=== PATIENT | male | born 1955 | race Caucasian/White ===

== ENCOUNTER 2018-09-13 11:31 | Outpatient (CLI) | payer OTHER ==
--- NOTE | 2018-09-13 12:09 | RAD ---
XR Chest Pa Lat STANDARD History: [Pneumothorax. Fever. J93.9] Comparison: None Findings: Right lung is clear. There is an air-fluid level left pneumothorax. Moderate left apical pneumothorax with the apical pleu ral line at the posterior left fourth rib.. Likely calcified granuloma left upper lobe. Impression: Left moderate hydropneumothorax. Message was sent to the referring provider using [employer].
== END 2018-09-13 11:32 | disposition home or self-care (01) ==
LOC: BICRAD 11:31
PROVIDERS: ATTEND Physician Assistant
DX: J93.9 Pneumothorax, unspecified (principal); R50.9 Fever, unspecified; J94.8 Other specified pleural conditions
CPT/HCPCS: 71046

== ENCOUNTER 2018-09-29 14:42 | Outpatient (CLI) | payer OTHER ==
--- NOTE | 2018-09-29 16:24 | MRI ---
MRI BRAIN NONCONTRAST: DATE: 09/29/2018 HISTORY: 63-year-old male with episode of dysarthria: TIA. COMPARISON: None FINDINGS: There are numerous small foci of restricted diffusion in the left cerebrum. One of them, located at t he far posterior edge of the left insula measuring approximately 1 x 0.6 cm, has a T2 hyperintense correlate. None of the other numerous lesions with restricted diffusion have any significant intra-ax ial signal abnormality visible on the FLAIR sequences yet. These other ones include several punctate lesions plus gyriform cortical lesions involving the left parietal lobe. There is a large number of tiny, small, and patchy T2-hyperintense lesions in the subcortical, deep, and periventricular white matter, consistent with chronic ischemic white matter changes due to microvascular atherosclerosis. There is no acute intra-axial hemorrhage. Ventricles are normal in size and configuration. No mass ef fect, midline shift, or extra-axial fluid collection. IMPRESSION: 1) a large number of tiny punctate focal, and thin cortical gyral acute infarctions in the left parie elaine lobe (left middle cerebral artery distribution). 2) a small 1 cm acute or subacute lacunar infarction at the posterior aspect of the left insular jorge l ex.
== END 2018-09-29 14:43 | disposition home or self-care (01) ==
LOC: BICMRI 14:42
PROVIDERS: ATTEND Physician Assistant
DX: G45.9 Transient cerebral ischemic attack, unspecified (principal); I63.81 Other cerebral infarction due to occlusion or stenosis of small artery
CPT/HCPCS: 70551

== ENCOUNTER 2019-01-16 12:24 | Outpatient (CLI) | payer OTHER ==
[2019-01-16 13:11] LABS: Estimated GFR-MDRD - POC Greater than 90
[2019-01-16] MEDS ORDERED: Iopamidol 370 76% 100 ML VIAL ONE (13:45)
--- NOTE | 2019-01-16 15:50 | CT ---
CT LUMBAR SPINE WITH IV CONTRAST: Multiple axial tomograms were obtained through the lumbar spine with IV enhancement. INDICATION: Radiculopathy. Fever. Assess for abscess. FINDINGS: There are degenerative changes of the lumbar spine. Severe degenerative disk changes are seen aL2-3, L3-4, and L4-5. Rather pronounced degenerative end plate changes at L2-3. Osteophytes of the lumba r vertebrae. At T12-L1, no significant disk bulge or protrusion. No central canal stenosis. At L1-2, broad-based disk bulge flattens the thecal sac. Facet hypertrophy. Moderate central canal stenosis. Mild bilateral foraminal stenosis more prominent on the right. At L2-3, degenerative disk changes noted above. Broad-based disk bulge. Facet hypertrophy. Moderat e central canal stenosis. Asymmetric disk bulge/protrusion to the right with hypertrophic changes re sults in right foraminal stenosis. At L3-4, broad-based disk bulge/protrusion flattens the thecal sac. Facet hypertrophy. Moderate to severe central canal stenosis. Asymmetric disk bulges to the right combined with facet hypertrophy r esults in right foraminal stenosis. At L4-5, broad-based disk protrusion. Gas density within the anterior spinal canal secondary to vacu um phenomena. Facet hypertrophy. Moderate to severe central canal stenosis. Left foraminal stenosi s due to asymmetric disk into the foramina and the combined facet hypertrophy. Tiny gas pockets are seen within the foramina as a result of anular tear and disk protrusion into the foramina. At L5-S1, mild diffuse disk bulge. Congenitally smaller thecal sac. No significant central canal st enosis. No significant foraminal stenosis. No evidence of fluid collection or abscess identified. No paravertebral abscess or inflammatory proc ess identified. IMPRESSION: Degenerative disk changes at multiple levels. Moderate to severe central canal stenosis at L2-3, L3- 4, and L4-5. Disk protrusion with foraminal stenosis at L4-5 as described. Severe right foraminal s tenosis at L3-4 and L2-3 as described. POS: GENIA
== END 2019-01-16 12:25 | disposition home or self-care (01) ==
LOC: CT 12:24
PROVIDERS: ATTEND Family Medicine
DX: M54.16 Radiculopathy, lumbar region (principal); R50.9 Fever, unspecified; M51.36 Other intervertebral disc degeneration, lumbar region; M48.061 Spinal stenosis, lumbar region without neurogenic claudication
CPT/HCPCS: 72132; Q9967

== ENCOUNTER 2019-01-19 15:03 | Inpatient (IN) | payer OTHER ==
[2019-01-19 16:13] LABS: #Basophils 0.1 thou/uL (0.0-0.2); #Lymphocytes 1.9 thou/uL (1.20-3.40); #Monocytes 1.9 thou/uL (0.11-0.59); #Neutrophils 9.7 thou/uL (1.40-6.50); %Basophils 0.5 % (0.0-1.0); %Eosinophils 0.3 % (0.0-10.0); %Lymphocytes 13.6 % (21.0-51.0); %Monocytes 14.2 % (0.0-10.0); %Neutrophils 71.4 % (42.0-75.0); Hemoglobin 12.9 g/dL (14.0-18.0); Mean Corpuscular HGB CONC 32.8 g/dL (32.0-36.0); Mean Corpuscular Hemoglobin 27.2 pg (27.0-31.0); Mean Platelet Volume 8.2 fL (7.4-10.4); Platelet Count 273 thou/uL (130-400); RBC Distribution Width 14.4 % (11.5-14.5); Red Blood Cell (RBC) Count 4.73 mill/uL (4.70-6.10); White Blood Cell (WBC) Count 13.6 thou/uL (4.8-10.8)
[2019-01-19 16:43] LABS: ALT (SGPT) 129 U/L (8-55); AST (SGOT) 54 U/L (5-34); Albumin 3.3 g/dL (3.4-4.8); Alkaline Phosphatase 286 U/L (40-110); Anion Gap 14 mmol/L (10-20); BUN (Urea Nitrogen) 11 mg/dL (8.4-25.7); Bilirubin, Total 0.5 mg/dL (0.2-1.2); Calc. Creatinine Clearance 0 mL/min (70-130); Carbon Dioxide 26 mmol/L (23-31); Chloride 97 mmol/L (98-107); Estimated GFR-MDRD Greater than 90; Globulin 3.6 g/dL (2.4-3.5); Glucose 129 mg/dL (80-115); Potassium 3.4 mmol/L (3.5-5.1); Protein, Total 6.9 g/dL (5.8-8.1); Sodium 134 mmol/L (136-145)
[2019-01-19] MEDS ORDERED: Morphine 4 MG/ML VIAL ONE ×2 (16:52→17:24)
[2019-01-19] MEDS ORDERED: Ondansetron PF 4 MG/2 ML Vial ONE (16:52)
--- NOTE | 2019-01-19 17:15 | RAD ---
PORTABLE CHEST 1 VIEW: Date: 01/19/19 Time: 1606 hours HISTORY: Fever, back pain, headaches. FINDINGS: Comparison made with exam of 09/13/18. Changes of median sternotomy again seen. The heart size is normal. The lungs are expanded without foc al areas of consolidation, pneumothoraces, or pleural effusions. An electronic device is seen in the projection of the left upper chest. IMPRESSION: No acute process. POS: OFF
[2019-01-19 19:21] VITALS: BMI 24.7
[2019-01-19] MEDS: Cyclobenzaprine 10 MG TAB PO PRN (20:56)
[2019-01-19] MEDS: traZODone HCl 50 MG TAB PO SCH (20:56)
[2019-01-19] MEDS ORDERED: Ketorolac Tromethamine 10 MG TAB PO SCH ×2 (21:00)
[2019-01-19] MEDS: Lidocaine 5% Patch TD PRN (21:32)
--- NOTE | 2019-01-20 00:30 | PDOC.EVN ---
Event Note - Event Note Event Note: [id number]
[2019-01-20] MEDS: HYDROcodone/Acetaminophen 7.5/325 mg Tablet PO PRN ×3 (00:36→15:30)
--- NOTE | 2019-01-20 02:21 | HP ---
HISTORY OF PRESENT ILLNESS: Mr. Mccartney is a 63-year-old male who presents to the emergency room with back pain, fever, weakness and headache for the last week. The family and reported that DrAngelika Marie also was concerned for symptoms of endocarditis?. Family said that his doctor was concerned for possible diskitis/osteomyelitis. The patient has had a triple bypass back in September 03. The patient reports generalized weakness and burning sensation in the left lower leg, which feels like there is a fire in it. Septic workup was done in the ED including blood cultures. The patient was given 1 dose of IV vancomycin. The patient is being admitted to the hospital for further management. PAST MEDICAL HISTORY: 1. TIA. 2. Syncopal episode. 3. Coronary artery disease. PAST SURGICAL HISTORY: Triple bypass. SOCIAL HISTORY: Denies alcohol drinking. He has former tobacco use, quit smoking in the past year. FAMILY HISTORY: Noncontributory. ALLERGIES: ALLERGIC TO FENTANYL. REVIEW OF SYSTEMS: Review of 14 systems negative except what is mentioned in the history of present illness. PHYSICAL EXAMINATION: GENERAL: Patient is awake, alert. There is moderate distress. VITAL SIGNS: Blood pressure 148/82, pulse is 74, respiratory rate 16, temperature 98.4. HEAD AND NECK: Normocephalic, atraumatic. NECK: Supple. CHEST: Fair bilateral air entry. HEART: S1, S2. Regular. ? murmur. ABDOMEN: Soft, nontender. Bowel sounds present. NEUROLOGIC: Awake, alert, oriented. PSYCHIATRIC: Unable to assess. EXTREMITIES: No clubbing or cyanosis. LABORATORY DATA: WBC count is 13.6, hemoglobin 12.9, platelets 273. Sodium 134, potassium 3.4, glucose 129, AST was 54, ALT 129. IMAGING: Chest x-ray, no acute findings. ASSESSMENT AND PLAN: 1. Fever. 2. Back pain. 3. ? endocarditis. 4. ? cardiac murmur. 5. Coronary artery disease. 6. History of transient ischemic attack. PLAN: 1. Admit. 2. Septic workup including blood cultures. 3. IV antibiotics. The patient was given IV vancomycin. 4. Neurosurgeon was consulted for evaluation and further recommendations. 5. We will get a 2D echo. 6. Pain management. 7. Reconcile home medications. 8. DVT prophylaxis. Early ambulation. 9. Expected length of stay 2 midnights or more. Job ID: [id number]
[2019-01-20] MEDS: Vancomycin HCl 1 GM in Premix Bag 1 BAG IVPB SCH ×3 (05:07→20:48)
[2019-01-20] MEDS: Ketorolac Tromethamine 10 MG TAB PO SCH ×2 (05:08→11:02)
[2019-01-20 07:06] LABS: #Eosinphils 0.1 thou/uL (0.0-0.7); #Lymphocytes 1.9 thou/uL (1.20-3.40); #Monocytes 1.4 thou/uL (0.11-0.59); #Neutrophils 11.1 thou/uL (1.40-6.50); %Basophils 0.3 % (0.0-1.0); %Eosinophils 0.4 % (0.0-10.0); %Lymphocytes 13.2 % (21.0-51.0); %Monocytes 9.8 % (0.0-10.0); %Neutrophils 76.3 % (42.0-75.0); Hemoglobin 12.2 g/dL (14.0-18.0); Mean Corpuscular HGB CONC 33.4 g/dL (32.0-36.0); Mean Corpuscular Hemoglobin 27.4 pg (27.0-31.0); Mean Corpuscular Volume 82.2 fL (78.0-98.0); Platelet Count 301 thou/uL (130-400); RBC Distribution Width 14.2 % (11.5-14.5); Red Blood Cell (RBC) Count 4.45 mill/uL (4.70-6.10); White Blood Cell (WBC) Count 14.6 thou/uL (4.8-10.8)
[2019-01-20 07:26] LABS: Anion Gap 13 mmol/L (10-20); BUN (Urea Nitrogen) 11 mg/dL (8.4-25.7); Calc. Creatinine Clearance 140 mL/min (70-130); Calcium 8.6 mg/dL (7.8-10.44); Carbon Dioxide 25 mmol/L (23-31); Chloride 94 mmol/L (98-107); Estimated GFR-MDRD Greater than 90; Glucose 143 mg/dL (80-115); Potassium 3.4 mmol/L (3.5-5.1); Sodium 129 mmol/L (136-145)
[2019-01-20] MEDS: Cyclobenzaprine 10 MG TAB PO PRN (07:48)
[2019-01-20] MEDS: Lidocaine Patch Removal 1 EACH TOP SCH ×2 (08:11→20:35)
[2019-01-20] MEDS ORDERED: Vancomycin HCl 1 GM in Premix Bag 1 BAG IVPB SCH (09:00)
[2019-01-20] MEDS ORDERED: ISOVUE-370 76%-LOCM 1 ML ONE (10:09)
[2019-01-20] MEDS ORDERED: Gadobenate Dimeglumine 529 MG/1 ML (20ML VIAL) ONE (10:14)
--- NOTE | 2019-01-20 11:27 | PRG ---
DATE OF SERVICE: 01/20/2019 I met Angel Mccartney in his hospital room this morning. I personally interviewed him, examined him, reviewed imaging, reviewed documentation and agree with the notes of Dorinda Espinosa PA-C, from earlier today. Briefly, Angel Mccartney is a 63-year-old gentleman who had a coronary artery bypass graft in June. At some point, he had a pacemaker placement. In September of this year, he suffered a stroke in the MCA distribution on the right side and this admission is for high-grade fever and severe back pain. He has a long history of degenerative disk disease in the lumbar spine with some radicular symptoms, especially on the left side, but the worsening back pain and fevers are new. T-max recorded that I see since admission is 99.6 degrees Fahrenheit. On examination, Mr. Mccartney is awake. He has had some pain medication. He is sleepy because of the medication, but he awakes and answers questions appropriately. I do not find any cranial neuropathies. There is slight left neglect. He has a very mild pronator drift. I do not find any myotomal weakness in the left or right lower extremity. There is tenderness in the midline of the back. CT imaging shows degenerative disk disease, but does not reveal the nerve roots. There is leukocytosis. Sedimentation rate is pending and CRP is pending. Blood cultures are pending. My recommendation for Mr. Mccartney is to have MRI scan with contrast of the lumbar spine. The pacemaker was placed here, then our Cardiology team ought to know whether it is MRI compatible. If this was done this year then is likely compatible with MRI scan, but we need to document it before the scan can be done. If the MRI scan cannot be done at all, then a tagged white blood cell scan is a possibility or a contrast CT scan. If there is a disk space that enhances or is a target for localization of white blood cells or if the MR images suggest this, then Radiology can do a CT-guided aspirate of the disk space if there is no source on blood cultures. Thankfully, the neurological function is relatively well preserved in the lower extremities and I recommend antibiotic therapy. Because the pacemaker is in place, there is always a question whether this device can be infected and perhaps a tagged white blood cell scan will be helpful in that regard as well. We will let defer to Cardiology, Infectious Disease and Medicine in that regard. Our Neurosurgery Team will follow up test results, but we are unlikely to recommend surgical intervention unless the imaging is extremely unusual. Job ID: [id number]
--- NOTE | 2019-01-20 11:46 | CON ---
DATE OF CONSULTATION: HISTORY OF PRESENT ILLNESS: Mr. Mccartney is a 63-year-old male who reported to the ED last night for fever and back pain. The patient's states that he has had sciatica for quite some time, but that the pain has gotten worse for about a week. Dr. Marie is concerned about past symptoms of endocarditis and is now worried that there is concern for diskitis or osteomyelitis. A CT scan was done earlier in the week. Neurosurgery has been consulted. I see Mr. Mccartney in his hospital room this morning. He is resting comfortably, lying on his back with his feet up in the bent position. He did recently have pain medications, so he is a little lethargic. The fills in some of the details. The patient had a triple bypass done with Dr. Bal in August and there was concern for endocarditis following this operation. The patient had fever that started last week along with some back pain. The worse pain was on the left, radiating along the L5 distribution. Last night when they got to the emergency department, it was bilateral. When I am seeing him this morning, he is able to move all 4 extremities without any lateralizing defects. There is good strength, good sensation. He states that his back is sore, but the legs feel pretty good right now. The medication is obviously working. While in my exam and without quick prompting, he falls back asleep, but he wakes well. He is alert and oriented to person, place, and time. REVIEW OF SYSTEMS: A 10-point review of systems has been completed and is negative other than stated in the above HPI. PAST MEDICAL HISTORY: TIA, syncopal episode, cardiac history. SURGICAL HISTORY: Triple bypass. SOCIAL HISTORY: The patient lives with his . He is a former tobacco user. Denies alcohol or drug use. ALLERGIES: FENTANYL. CURRENT MEDICATIONS: 1. Lidocaine. 2. Methocarbamol. 3. Methylprednisolone. 4. Tylenol with Codeine #4. 5. Clopidogrel. 6. Lipitor. 7. Metoprolol. 8. Hydroxyzine. 9. Sertraline. 10. Trazodone. 11. Fish oil. 12. Biotin. 13. Tylenol Arthritis. PHYSICAL EXAMINATION: VITAL SIGNS: Temperature 99.6, heart rate 80, respirations 16, O2 saturation 91% on room air, and 157/70 blood pressure. CONSTITUTIONAL: The patient is lethargic, but awakens easily. He is afebrile, slightly hypertensive, does not appear to be in any significant pain and appears nontoxic. HEENT. Head is normocephalic and atraumatic. Pupils are equal, round, and reactive to light. Extraocular movements are intact. Hearing is intact. Moist mucous membranes. RESPIRATIONS: Normal work of breathing on room air. Symmetric chest rise. EXTREMITIES: The patient is moving upper and lower extremities well. Negative single leg raise bilaterally. Hip rotation normal. 5/5 strength in deltoids, biceps, triceps, bag adjuster strength, hip flexion, hip extension, knee flexion, knee extension, dorsiflexion, plantar flexion. There is no change in sensation. NEUROLOGIC: The patient is sleepy, but awakens easily. He is oriented to person, place, and time. Speech is spontaneous and fluent. Normal fund of knowledge. Cranial nerves 2 through 12 are intact. There are no lateralizing sensory or motor deficits noted. IMAGING STUDIES: CT lumbar that was done on 01/16/2019 shows degenerative disk changes at multiple levels. Moderate to severe central canal stenosis at L2-L3, L3-L4, and L4-5. Disk protrusion with foraminal stenosis at L4-5, severe right foraminal stenosis at L3-4 and L2-3. ASSESSMENT AND PLAN: Mr. Mccartney is a 63-year-old male with history of high fevers and back pain. There is concern for an infective endocarditis and now there is concern for diskitis with osteomyelitis. He has been admitted to the hospital by the Hospitalist Department. Workup needs to be done. CBC, sedimentation rate, CRP, MRI lumbar spine with and without contrast, SURYA for vegetations, Infectious Disease consult should be done. If there is any reason that the patient cannot get MRI with and without contrast, then he needs to have CT with and without contrast. If there is any cardiac concerns, then we can look into what was placed. I believe it was done at our hospital and if it is okay for the MRI machine or not. Thank you for consulting Neurosurgery. If there are any further questions, please contact our group. Job ID: [id number]
[2019-01-20] MEDS: Ibuprofen 200 MG TAB PO PRN ×2 (12:28→21:36)
--- NOTE | 2019-01-20 12:32 | RAD ---
XR Chest 1 View History: Follow-up Comparison: Radiograph prior day Findings: The extrinsic device has been removed. Heart size mildly enlarged. No pneumothorax. Mild pu lmonary venous congestion. No acute osseous abnormality. Multiple midline sternotomy wires. Impression: Cardiomegaly and mild pulmonary venous congestion. Removal of the extrinsic device.
--- NOTE | 2019-01-20 12:36 | PDOC.HOSPP ---
- Subjective Encounter Date: 01/20/19 Encounter Time: 12:34 Subjective: Mr. Mccartney was seen today in follow-up of severe back pain and concern for spinal infection. He says the pain in his back is relatively controlled. He is a bit drowsy. - Objective Vital Signs & Weight: Vital Signs (12 hours) Temp Pulse Resp BP BP Pulse Ox 01/20/19 11:50 101.1 F H 91 16 167/84 H 91 L 01/20/19 07:49 99.6 F 80 16 157/70 H 91 L 01/20/19 04:30 98.3 F 88 18 168/79 H 93 L Weight Weight 163 lb 2.273 oz I&O: 01/19/19 01/20/19 01/21/19 06:59 06:59 06:59 Intake Total 350 Balance 350 Result Diagrams: 01/20/19 06:52 01/20/19 06:52 Hospitalist ROS - Medication Medications: Active Medications Generic Name Dose Route Start Last Admin Trade Name Freq PRN Reason Stop Dose Admin Hydrocodone Bitart/Acetaminophen 1 tab 01/20/19 00:21 01/20/19 06:18 [place] 7.5/325 PO 1 tab Q6H PRN Administration Moderate Pain (4-6) Cyclobenzaprine HCl 10 mg 01/19/19 20:15 01/20/19 07:48 Flexeril PO 10 mg TID PRN Administration Muscle Spasm Vancomycin HCl 1 gm/ Device 200 mls @ 200 mls/hr 01/20/19 06:00 01/20/19 12: 29 IVPB 200 mls Q8HR ALBIN Administration Ibuprofen 600 mg 01/20/19 12:21 01/20/19 12:28 Motrin PO 600 mg Q6H PRN Administration FEVER, PAIN Lidocaine 2 patch 01/19/19 20:16 01/19/19 21:32 Lidoderm 5% Patch TD 2 patch Q24H PRN Administration Pain Miscellaneous Medication 1 each 01/20/19 09:00 01/20/19 08:11 Lidocaine Patch Removal TOP Not Given Q12HR LABIN Trazodone HCl 50 mg 01/19/19 21:00 01/19/19 20:56 Desyrel PO 50 mg HS ALBIN Administration - Exam Eye: PERRL Heart: RRR, no murmur, no gallops, no rubs, normal peripheral pulses Respiratory: CTAB, no wheezes, no rales, no ronchi, normal chest expansion Gastrointestinal: soft, non-tender, non-distended, normal bowel sounds, no palpable masses, no hepatomegaly, no splenomegaly Extremities: no cyanosis, no clubbing, no edema Musculoskeletal: normal tone, normal strength, no muscle wasting Psychiatric: normal affect, normal behavior, A&O x 3 Hosp A/P (1) Fever Code(s): R50.9 - FEVER, UNSPECIFIED Status: Acute (2) Severe back pain Code(s): M54.9 - DORSALGIA, UNSPECIFIED Status: Acute (3) CAD (coronary artery disease) Code(s): I25.10 - ATHSCL HEART DISEASE OF [place] CORONARY ARTERY W/O ANG PCTRS Status: Acute (4) S/P CABG x 3 Code(s): Z95.1 - PRESENCE OF AORTOCORONARY BYPASS GRAFT Status: Acute (5) Abnormal liver function test Code(s): R94.5 - ABNORMAL RESULTS OF LIVER FUNCTION STUDIES Status: Acute - Plan * Fever and back pain- the concern is for Lumbar spine disciits- plan is fro MRI of the Lumbar spine * Continue Vancomycin empirically * CAD- continue Plavix, lipitor, and metoprolol * Elevated LFT's- will check a hepatitis panel, and repeat in am to assess the trend * Continue medications for symptom management * DVT prophylaxis
[2019-01-20 12:43] LABS: HBSAg Index 0.15 S/CO (0-0.99); Hep A IgM AB Non-Reactive (NonReactive); Hep A IgM S/CO 0.08 S/CO (0-0.79); Hep B Surf Ag Non-Reactive S/CO (NonReactive); Hep C IgG Ab Non-Reactive (NonReactive); Hep C Index 0.04 S/CO (0-0.79); Hepatitis B Core IgM Abs Non-Reactive (NonReactive)
--- NOTE | 2019-01-20 14:28 | CT ---
CT abdomen and pelvis with IV contrast HISTORY: Fever. Abdominal pain. FINDINGS: Subsegmental atelectasis at each posterior lung base. Small cysts within the liver and righ t kidney. No hydronephrosis. Prominent calcification throughout the arterial structures. No evidence of bowel obstruction or inflammation. Urinary bladder is unremarkable. Prominent degenerativ e changes lumbar spine. Old ununited fracture of the left L5 inferior facet. L4 Fluid distends the left side of the scrotum. Linear hyperdensity along the anterior margin of the lef t side of the scrotum has the apparent calcification. No internal gas. IMPRESSION: Cause of abdominal pain and fever is not reliably demonstrated. Perhaps the right basilar lung atelectasis could be related to the fever. Large left hydrocele. Calcification along the tunica on the left side of the scrotum suggests possibi lity of an old infection or hematoma.
--- NOTE | 2019-01-20 15:59 | MRI ---
MRI LUMBAR SPINE WITH AND WITHOUT CONTRAST: DATE: 01/20/2019 HISTORY: 63-year-old male with low back pain and fever of unknown origin. COMPARISON: No prior MRIs of lumbar spine. TECHNIQUE: Multiple sequences obtained in axial and sagittal planes, pre and post IV injection of gadolinium-bas ed contrast agent. Axial images were obtained from T12-L1 through L5-S1. Levels superior to T12-L1 are only included on sagittal sequences. FINDINGS: For the purposes of this report, it will be assumed that there are 5 lumbar-type vertebrae. Vertebral body heights are maintained. Bone marrow signal is diffusely heterogeneous at mid and lower levels. This is nonspecific, but proba shavonne represents senescent marrow changes. All of the images are degraded by patient motion. All of the postcontrast T1-weighted axial images are severely degraded by patient motion, and are nondiagnos tic. T10-11: Only included on sagittal sequences. There is left parasagittal and left lateral disc herniat ion which at least contacts the left ventral surface of the spinal cord. There is adjacent T2-hyperintense intramedullary signal in that segment of spinal cord, which could represent cord clara a or artifact. This probably does not enhance. Left neural foraminal stenosis is moderate-severe. No right neural foraminal stenosis. T11-12: Only included on sagittal sequences. No high-grade central or high-grade neural foraminal matty nosis as seen on sagittal images. Possible left lateral recess stenosis by left ligamentum flavum thickening and left paracentral disc protrusion. No high-grade disc space narrowing.. T12-L1:Disc space maintained. Conus medullaris terminates at upper L1. No high-grade central or high- grade neural foraminal stenosis. Hypoplastic bilateral T12 ribs. L1-2: Moderate right-sided disc space narrowing due to levoscoliosis. Diffuse disc bulge. Mild centra l spinal canal stenosis. Moderate thecal sac stenosis. Mild to moderate right neural foraminal stenosis. Mild left neural foraminal stenosis. L2-3:Severe right-sided disc space narrowing with mixed Modic type I and type III changes in the righ t side of the endplates, moderate to severe right neural foraminal stenosis; all due to the concavity of the levoscoliosis. Diffuse disc bulge, asymmetrically with larger at the right far later al area. Mild to moderate central spinal canal stenosis. Moderate to severe thecal sac stenosis. Lateral recess stenosis bilaterally. Mild left neural foraminal stenosis. L3-4:Moderate to severe right neural foraminal stenosis and moderate to severe right sided disc space narrowing due to the concavity of the scoliosis. Diffuse disc bulge. Moderate central spinal canal stenosis and lateral recess stenosis bilaterally. Severe thecal sac stenosis with obliteration of CSF signal. Moderate left neural foraminal stenosis. Incidentally, a 1.2 x 0.5 x 0.5 cm synovial cyst arising from the left facet joint protrudes posteriorly into the posterior perivertebral space (away from neural foramina and spinal canal). L4-5:Severe left-sided disc space narrowing, left-sided mixed Modic type I, type II, and type III end plate marrow changes, very severe left neural foraminal stenosis with chronic compression of the exiting left L4 nerve root; all related to the concavity of the counter curvature to the levoscoliosi s at upper level (compensatory dextroscoliosis at this level). Moderate central spinal canal stenosis and lateral recess stenosis bilaterally. Severe thecal sac stenosis. Mild to moderate right neural foraminal stenosis. L5-S1:Disc space maintained. No high-grade central stenosis or high-grade neural foraminal stenosis. Mild left neural foraminal stenosis. Within the posterior epidural space, centered to the left of midline, there is a 2.5 x 1 x 0.5 cm focal fluid collection. The anterior portion of this deeply inde nts the severely stenotic thecal sac, displacing sacral cauda equina nerve roots. This cystic lesion extends from the L4-5 level to the L5-S1 level. Bone marrow edema of left L5 pedicle, presumab ly due to biomechanical stress. Furthermore, in the left posterior medial perivertebral space, outside of the spinal canal and broadl y abutting the left lamina and spinous process, there is another focal fluid collection measuring approximately 2.5 x 1.5 x 1.5 cm. IMPRESSION: 1) Limited study. Postcontrast T1-weighted axial images are severely degraded by patient motion, and are essentially nondiagnostic. 2) lumbar spondylosis, with high-grade degenerative disc disease at several levels and double curvatu re scoliosis. 3) severe left L4-5 neural foraminal stenosis with chronic compression of the exiting left L4 nerve r oot. 4) multilevel high-grade thecal sac stenosis, especially at L3-4 and L4-5. 5) severe left neural foraminal stenosis and possible mild cord impingement, at T10-11 in the thoraci c spine, incompletely imaged. 6) left posterior extradural fluid collection within the spinal canal from L4-5 to L5-S1 level. 7) a larger retrospinal fluid collection in the left posterior perivertebral space. 8) dose of last to mention fluid collections are of indeterminate etiology. Possibilities include syn ovial cysts (favored) and abscesses (considered less likely) the intraspinal collection is not accessible by percutaneous needle procedure. The extraspinal collection is accessible..
[2019-01-20] MEDS: Atorvastatin Calcium 40 MG TAB PO SCH (20:45)
[2019-01-20] MEDS: traZODone HCl 50 MG TAB PO SCH (20:45)
[2019-01-20] MEDS: Methocarbamol 500 MG TAB PO SCH (20:45)
[2019-01-21] MEDS: HYDROcodone/Acetaminophen 7.5/325 mg Tablet PO PRN ×4 (00:15→20:41)
[2019-01-21] MEDS: Cyclobenzaprine 10 MG TAB PO PRN ×3 (00:16→20:41)
[2019-01-21 06:02] LABS: ALT (SGPT) 67 U/L (8-55); AST (SGOT) 21 U/L (5-34); Albumin 3.3 g/dL (3.4-4.8); Alkaline Phosphatase 234 U/L (40-110); Bilirubin, Direct 0.4 mg/dL (0.1-0.3); Bilirubin, Total 0.6 mg/dL (0.2-1.2); Protein, Total 6.5 g/dL (5.8-8.1)
[2019-01-21] MEDS: Vancomycin HCl 1 GM in Premix Bag 1 BAG IVPB SCH (06:03)
[2019-01-21] MEDS: Vancomycin HCl 1.5 GM in Sodium Chloride 0.9% 250 ML 300 ML IVPB SCH ×3 (06:18→21:45)
[2019-01-21] MEDS: Enoxaparin Sodium 40 MG/0.4 ML SYRINGE SC SCH (07:11)
[2019-01-21] MEDS: Fish Oil 1,000 MG CAP PO SCH (07:12)
[2019-01-21] MEDS: Clopidogrel Bisulfate 75 MG TAB PO SCH (07:14)
[2019-01-21] MEDS: Methocarbamol 500 MG TAB PO SCH ×2 (07:14→19:46)
[2019-01-21] MEDS: Lidocaine Patch Removal 1 EACH TOP SCH ×2 (07:16→19:09)
[2019-01-21] MEDS: Ibuprofen 200 MG TAB PO PRN ×2 (10:34→19:46)
[2019-01-21 13:27] LABS: #Basophils 0.1 thou/uL (0.0-0.2); #Lymphocytes 2.2 thou/uL (1.20-3.40); #Monocytes 1.3 thou/uL (0.11-0.59); %Basophils 0.3 % (0.0-1.0); %Eosinophils 0.3 % (0.0-10.0); %Lymphocytes 12.3 % (21.0-51.0); %Monocytes 7.3 % (0.0-10.0); %Neutrophils 79.8 % (42.0-75.0); Hemoglobin 12.6 g/dL (14.0-18.0); Mean Corpuscular HGB CONC 33.4 g/dL (32.0-36.0); Mean Corpuscular Hemoglobin 27.5 pg (27.0-31.0); Mean Corpuscular Volume 82.3 fL (78.0-98.0); Mean Platelet Volume 7.5 fL (7.4-10.4); Platelet Count 399 thou/uL (130-400); RBC Distribution Width 13.9 % (11.5-14.5); Red Blood Cell (RBC) Count 4.56 mill/uL (4.70-6.10); White Blood Cell (WBC) Count 17.5 thou/uL (4.8-10.8)
[2019-01-21 13:43] LABS: ALT (SGPT) 56 U/L (8-55); AST (SGOT) 21 U/L (5-34); Alkaline Phosphatase 210 U/L (40-110); Anion Gap 11 mmol/L (10-20); BUN (Urea Nitrogen) 11 mg/dL (8.4-25.7); Bilirubin, Total 0.5 mg/dL (0.2-1.2); Calc. Creatinine Clearance 138 mL/min (70-130); Calcium 8.3 mg/dL (7.8-10.44); Carbon Dioxide 28 mmol/L (23-31); Chloride 93 mmol/L (98-107); Estimated GFR-MDRD Greater than 90; Gamma GT (GGT) 295 U/L (12-64); Globulin 3.7 g/dL (2.4-3.5); Glucose 151 mg/dL (80-115); Potassium 3.3 mmol/L (3.5-5.1); Protein, Total 6.7 g/dL (5.8-8.1); Sodium 129 mmol/L (136-145)
[2019-01-21] MEDS ORDERED: Metoclopramide HCl 10 MG TAB ONE ×2 (14:24→21:40)
[2019-01-21] MEDS: cefTRIAXone\\ROCEPHIN 2 GM in Sodium Chloride 0.9% 100 ML IVPB SCH (17:54)
--- NOTE | 2019-01-21 18:15 | CON ---
DATE OF CONSULTATION: 01/21/2019 REASON FOR CONSULTATION: Back pain, fever. HISTORY OF PRESENT ILLNESS: A 63-year-old who has a history of coronary artery disease with bypass graft surgery earlier this year with chronic low back symptoms related to osteoarthrosis, who has had worsening back pain for the past few weeks and then developed fever and worsening mobility issues due to the back disorder. He was admitted and had an MRI, and the results are discussed below and is being treated with antimicrobial therapy. He denies headaches, visual symptoms, sore throat, odynophagia, or dysphagia. No cough or sputum production. No chest pain. No abdominal pain. No genitourinary symptoms. PAST MEDICAL HISTORY: TIA, syncope, coronary artery disease, and bypass graft surgery. SOCIAL HISTORY: Lives in [place] with family. Former smoker, quit about a year ago. No alcoholic beverage use. FAMILY HISTORY: Noncontributory. ALLERGIES: FENTANYL. CURRENT MEDICATIONS: 1. Lipitor. 2. Plavix. 3. Flexeril. 4. Lovenox. 5. Fish oil. 6. Motrin. 7. Lidoderm. 8. Robaxin. 9. Toprol. 10. Pantoprazole. 11. Zoloft. 12. Vancomycin. PHYSICAL EXAMINATION: VITAL SIGNS: T-max 101.1, currently 98.9; blood pressure 160/61; pulse 86; and respirations 18. SKIN: Remarkable for a few areas of telangiectases in the back, right shoulder. Peripheral IV access. He is voiding in the urinal. HEENT: Ocular movements conjugate. Oral cavity normal. The patient has no tolowa dee-ni' teeth remaining in place. NECK: Supple. No jugular venous distention or carotid bruits. No lymphadenopathy. LUNGS: Symmetric. Clear breath sounds. HEART: S1, S2. Regular rate. There is hyperalgesia in the left anterior chest area, which is a chronic problem since the surgical procedure earlier this year. ABDOMEN: No abdominal pain. No organomegaly or ascites. No bladder distention. GENITOURINARY: Examination normal. EXTREMITIES: Pulses 1+ in dorsalis pedis. Plantar responses are flexor. Moves all extremities equally. NEUROLOGIC: Cognitive function appears to be intact LABORATORY DATA: White cell count 13.6 and now 17.5, hemoglobin 12.6, platelets 399, and 79% neutrophils. Creatinine 0.59. GGT 295. AST 21, ALT 56, alkaline phosphatase 210, albumin is 3.0. Hepatitis C, B, and A serology negative. Vancomycin trough 7.0. Three blood cultures thus far no growth. IMAGING STUDIES: Abdomen and pelvis CT showed no significant abnormalities. There is a fluid distention of the left side of the scrotum that is probably just hydrocele. Lumbar spine MRI with a retro-spinal fluid collection of left posterior paravertebral space. This is accessible to a needle. There is another one intraspinal collection, which is not accessible. Echocardiogram; normal LV function, EF 55 to 60. No other abnormalities indicated. ASSESSMENT: Chronic low back osteoarthrosis and chronic back problems, now with exacerbation and those abnormalities noted on MRI of the LS spine. There are two fluid collections, one is intraspinal, the other is extra spinal posteriorly located in between the pedicles and the posterior spinal processes. I believe L4 and 5 coronary disease and recent bypass graft surgery, abnormal liver function tests. DISCUSSION: Differential diagnosis includes spinal infection with abscess formation as the more likely scenario here. Intraabdominal inflammatory process, liver abscess, or biliary tract problem, those have been pretty much ruled out in view of the findings in the CT scan of the abdomen. The bacteremia is not ruled out. Endocarditis is less likely. We will consult Radiology to see if they can aspirate the x-ray spinal fluid collection for microbiology workup. Continue monitoring blood cultures and add Rocephin to the mix of his antimicrobial regimen. Job ID: [id number] [facility]
--- NOTE | 2019-01-21 18:56 | ULT ---
Exam: Right upper quadrant ultrasound: HISTORY: Elevated LFTs COMPARISON: Abdomen and pelvic CT scan, 01/20/2019 FINDINGS: Visualized liver:Unremarkable. Gallbladder:No evidence of gallstones, wall thickening, edema, or pericholecystic fluid. Common bile duct:Within normal limits. Borderline size pancreatic duct. 1.5 cm slightly septated right renal cyst without hydronephrosis. No evidence for abscess or abnormal fluid collection in the right upper quadrant. IMPRESSION: No significant acute process.
[2019-01-21] MEDS: Atorvastatin Calcium 40 MG TAB PO SCH (19:46)
[2019-01-21] MEDS: traZODone HCl 50 MG TAB PO SCH (19:46)
[2019-01-21] MEDS ORDERED: Potassium Chloride 20 MEQ TAB PO SCH (20:30)
--- NOTE | 2019-01-21 20:34 | PDOC.HOSPP ---
- Subjective Encounter Date: 01/21/19 Encounter Time: 11:15 Subjective: pt up in bed still has pain to his lower back - Objective Vital Signs & Weight: Vital Signs (12 hours) Temp Pulse Resp BP Pulse Ox 01/21/19 16:05 100.1 F H 90 18 164/76 H 91 L 01/21/19 16:00 98.4 F 75 16 161/74 H 94 L 01/21/19 11:33 98.9 F 86 18 163/61 H 93 L Weight Weight 163 lb 2.273 oz I&O: 01/20/19 01/21/19 01/22/19 06:59 06:59 06:59 Intake Total 350 1860 900 Balance 350 1860 900 Result Diagrams: 01/21/19 13:02 01/21/19 13:02 Hospitalist ROS - Review of Systems Respiratory: denies: cough, dry, shortness of breath, hemoptysis, SOB with excertion, pleuritic pain, sputum, wheezing, other Cardiovascular: denies: chest pain, palpitations, orthopnea, paroxysmal noc. dyspnea, edema, light headedness, other Gastrointestinal: denies: nausea, vomiting, abdominal pain, diarrhea, constipation, melena, hematochezia, other Musculoskeletal: reports: back pain - Medication Medications: Active Medications Generic Name Dose Route Start Last Admin Trade Name Freq PRN Reason Stop Dose Admin Hydrocodone Bitart/Acetaminophen 1 tab 01/20/19 00:21 01/21/19 13:13 [place] 7.5/325 PO 1 tab Q6H PRN Administration Moderate Pain (4-6) Atorvastatin Calcium 40 mg 01/20/19 21:00 01/21/19 19:46 Lipitor PO 40 mg HS ALBIN Administration Clopidogrel Bisulfate 75 mg 01/21/19 09:00 01/21/19 07:14 Plavix PO 75 mg DAILY ALBIN Administration Cyclobenzaprine HCl 10 mg 01/19/19 20:15 01/21/19 13:13 Flexeril PO 10 mg TID PRN Administration Muscle Spasm Enoxaparin Sodium 40 mg 01/21/19 09:00 01/21/19 07:11 Lovenox SC 40 mg 0900 ALBIN Administration Fish Oil 1,000 mg 01/21/19 09:00 01/21/19 07:12 Fish Oil PO 1,000 mg DAILY ALBIN Administration Vancomycin HCl 1.5 gm/ Sodium 300 mls @ 200 mls/hr 01/21/19 06:00 01/21/19 15 :14 Chloride IVPB 300 mls Q8HR ALBIN Administration Ceftriaxone Sodium 2 gm/ 100 mls @ 200 mls/hr 01/21/19 17:00 01/21/19 17:54 Sodium Chloride IVPB 100 mls Q24HR ALBIN Administration Ibuprofen 600 mg 01/20/19 12:21 01/21/19 19:46 Motrin PO 600 mg Q6H PRN Administration FEVER, PAIN Lidocaine 2 patch 01/19/19 20:16 01/19/19 21:32 Lidoderm 5% Patch TD 2 patch Q24H PRN Administration Pain Methocarbamol 500 mg 01/20/19 21:00 01/21/19 19:46 Robaxin PO 500 mg BID ALBIN Administration Metoprolol Succinate 25 mg 01/21/19 09:00 01/21/19 07:12 Toprol Xl PO 25 mg DAILY ALBIN Administration Miscellaneous Medication 1 each 01/20/19 09:00 01/21/19 19:09 Lidocaine Patch Removal TOP Not Given Q12HR ALBIN Pantoprazole Sodium 40 mg 01/21/19 09:00 01/21/19 07:12 Protonix PO 40 mg DAILY ALBIN Administration Sertraline HCl 25 mg 01/21/19 09:00 01/21/19 07:12 Zoloft PO 25 mg DAILY ALBIN Administration Trazodone HCl 50 mg 01/19/19 21:00 01/21/19 19:46 Desyrel PO 50 mg HS ALBIN Administration - Exam ENT: negative: normocephalic atraumatic, no oropharyngeal lesions, moist mucosa , dry oral mucosa Neck: negative: supple, symmetric, no JVD, no thyromegaly, no lymphadenopathy, no carotid bruit, JVD Heart: negative: RRR, no murmur, no gallops, no rubs, normal peripheral pulses, irregular, diminshed peripheral pulses, murmur present, II/IV, III/IV Respiratory: negative: CTAB, no wheezes, no rales, no ronchi, normal chest expansion, no tachypnea (lower back pain), normal percussion, rales, rhonchi, tachypneic, wheezes Hosp A/P (1) Abnormal liver function test Code(s): R94.5 - ABNORMAL RESULTS OF LIVER FUNCTION STUDIES Status: Acute (2) CAD (coronary artery disease) Code(s): I25.10 - ATHSCL HEART DISEASE OF [place] CORONARY ARTERY W/O ANG PCTRS Status: Acute (3) Fever Code(s): R50.9 - FEVER, UNSPECIFIED Status: Acute (4) S/P CABG x 3 Code(s): Z95.1 - PRESENCE OF AORTOCORONARY BYPASS GRAFT Status: Acute (5) Severe back pain Code(s): M54.9 - DORSALGIA, UNSPECIFIED Status: Acute - Plan pt still has pain to his lower back, will get ID to see pt. will continue abx for now. will check ck. Pt does have stenosis, neurosurgery consulted.
[2019-01-22] MEDS: HYDROcodone/Acetaminophen 7.5/325 mg Tablet PO PRN ×4 (03:29→20:23)
[2019-01-22] MEDS: Cyclobenzaprine 10 MG TAB PO PRN ×3 (03:30→14:52)
[2019-01-22] MEDS: Ibuprofen 200 MG TAB PO PRN ×2 (05:20→16:31)
[2019-01-22 05:39] LABS: INR-International Normal Ratio 1.1; PTT 24.5 SEC (22.9-36.1); Prothrombin Time 14.1 SEC (12.0-14.7)
[2019-01-22 05:51] LABS: Vancomycin, Trough 14.8 ug/mL
[2019-01-22] MEDS: Vancomycin HCl 1.5 GM in Sodium Chloride 0.9% 250 ML 300 ML IVPB SCH ×3 (06:16→20:24)
--- NOTE | 2019-01-22 07:39 | PRG ---
DATE OF SERVICE: 01/22/2019 Mr. Mccartney was admitted for fever and back pain. He subsequently underwent MRI scan where MRI of the lumbar spine reveals para-musculature intensity consistent with abscess. He does have a small epidural component in lower lumbar segment which is minimally compressive. I do not believe he is in need of surgical intervention. There are plans for CT-guided aspiration with cultures tomorrow. The Infectious Disease service is following and ultimately I believe his appropriate treatment will be IV antibiotics. Should he have a change in neurologic function, the neurosurgical service can be reconsulted. Job ID: [id number]
[2019-01-22] MEDS: Lidocaine Patch Removal 1 EACH TOP SCH ×2 (07:51→19:27)
[2019-01-22] MEDS: Fish Oil 1,000 MG CAP PO SCH (08:02)
[2019-01-22] MEDS: Clopidogrel Bisulfate 75 MG TAB PO SCH ×2 (08:02→08:11)
[2019-01-22] MEDS: Enoxaparin Sodium 40 MG/0.4 ML SYRINGE SC SCH ×2 (08:02→08:11)
[2019-01-22] MEDS ORDERED: PARoxetine 20 MG TAB ONE (08:06)
[2019-01-22] MEDS: Methocarbamol 500 MG TAB PO SCH ×2 (08:09→20:23)
[2019-01-22] MEDS ORDERED: Midazolam HCl 2 mg/2 ml Vial ONE (09:06)
[2019-01-22] MEDS ORDERED: Meperidine HCl/PF 25 MG/ML VIAL ONE (09:06)
[2019-01-22] MEDS ORDERED: Sodium Bicarbonate 2.5 MEQ/5 ML VIAL ONE (09:06)
[2019-01-22 09:11] LABS: ALT (SGPT) 47 U/L (8-55); AST (SGOT) 19 U/L (5-34); Albumin 3.2 g/dL (3.4-4.8); Alkaline Phosphatase 198 U/L (40-110); Anion Gap 13 mmol/L (10-20); BUN (Urea Nitrogen) 10 mg/dL (8.4-25.7); Bilirubin, Total 0.5 mg/dL (0.2-1.2); Calc. Creatinine Clearance 140 mL/min (70-130); Calcium 8.9 mg/dL (7.8-10.44); Carbon Dioxide 27 mmol/L (23-31); Chloride 96 mmol/L (98-107); Estimated GFR-MDRD Greater than 90; Globulin 3.9 g/dL (2.4-3.5); Glucose 114 mg/dL (80-115); Potassium 3.9 mmol/L (3.5-5.1); Protein, Total 7.1 g/dL (5.8-8.1); Sodium 132 mmol/L (136-145)
--- NOTE | 2019-01-22 10:43 | CT ---
CT-guided abscess drainage lumbar spine Conscious sedation: At least 20 minutes were spent with the patient for conscious sedation. HISTORY: Left posterior paraspinal abscess FINDINGS: After explaining the procedure and answering all questions, patient was placed on the CT ta ble in prone position. Sterile technique, buffered local anesthesia, conscious sedation, CT guidance, and a left posterior midline approach were used to carefully advance a 17-gauge trocar need le to the fluid collection immediately to the left of the L5 spinous process. Needle position was confirmed. A total volume of 1 cc slightly blood-tinged purulent summers liquid was aspirated and sent to laboratory for evaluation Needle was removed. No evidence of complication. Patient tolerated the procedure well and was returne d in unchanged condition. IMPRESSION: Technically successful CT-guided aspiration left posterior paraspinal lumbar abscess. Lilian lysis pending.
[2019-01-22] MEDS ORDERED: Zolpidem Tartrate 5 MG TAB PO PRN ×2 (11:52→18:11)
--- NOTE | 2019-01-22 14:52 | ULT ---
Scrotal sonogram with duplex evaluation HISTORY: Left testicular pain. FINDINGS: Right testicle is 4.8 cm length and the left 3.7 cm. Each has a normal sonographic appearan ce with good color and spectral Doppler flow. There is significant thickening of the tunica at the left side of the scrotum. Homogeneous echogenic fluid throughout the left scrotum. IMPRESSION: No evidence of testicular mass or torsion. Complex left hydrocele with thickened tunica. Cause for inflammation is not evident.,
[2019-01-22] MEDS: cefTRIAXone\\ROCEPHIN 2 GM in Sodium Chloride 0.9% 100 ML IVPB SCH (16:14)
[2019-01-22] MEDS ORDERED: Sodium Chloride 0.9% 1,000 ML IV SCH (16:45)
--- NOTE | 2019-01-22 17:56 | CT ---
EXAM: Brain CTWithout contrast: HISTORY: Altered mental status, confusion COMPARISON: None FINDINGS: No focal mass or midline shift. No intra or extra-axial hemorrhage. Sinuses and mastoids are clear of acute process. IMPRESSION: No mass or bleed or other significant acute intracranial process.
[2019-01-22] MEDS: cloNIDine 0.1 MG TAB PO PRN (20:23)
[2019-01-22] MEDS: Melatonin 3 MG TAB PO SCH (20:23)
[2019-01-22] MEDS: Atorvastatin Calcium 40 MG TAB PO SCH (20:23)
[2019-01-23] MEDS: Ibuprofen 200 MG TAB PO PRN ×3 (02:30→21:45)
[2019-01-23] MEDS: cloNIDine 0.1 MG TAB PO PRN (05:34)
[2019-01-23] MEDS: Vancomycin HCl 1.5 GM in Sodium Chloride 0.9% 250 ML 300 ML IVPB SCH (06:13)
[2019-01-23 07:10] LABS: Hemoglobin 12.6 g/dL (14.0-18.0); Mean Corpuscular HGB CONC 33.6 g/dL (32.0-36.0); Mean Corpuscular Hemoglobin 27.3 pg (27.0-31.0); Mean Corpuscular Volume 81.2 fL (78.0-98.0); Mean Platelet Volume 7.3 fL (7.4-10.4); Platelet Count 501 thou/uL (130-400); RBC Distribution Width 13.4 % (11.5-14.5); Red Blood Cell (RBC) Count 4.63 mill/uL (4.70-6.10); White Blood Cell (WBC) Count 22.1 thou/uL (4.8-10.8)
--- NOTE | 2019-01-23 07:23 | PRG ---
DATE OF SERVICE: 01/23/2019 I saw Angel Mccartney in his hospital bed this morning. Mr. Mccartney is now on the fourth floor. He is on antibiotics after positive blood culture and an MRI scan has been done. T-max over the weekend was 100.2 degrees Fahrenheit. Blood pressures are high in the 180s to 190s. On examination, he has good strength in lower extremities. He has some nerve stretch signs when he extends his legs and his positive straight leg raise is quite remarkable. His MRI scan shows a small fluid collection posterior in the intraspinal space at L4-5, L5-S1. This could be accessed with a CT-guided aspirate. I believe Mr. Mccartney can be managed with medical treatment for his spine infection. The source of the infection is a critical issue whether it is related to heart valve or heart implant or some other source. He had an infectious complication earlier and this may be a recurrence. We will continue to follow him loosely while he is in the hospital and if there is neurological deterioration, a laminectomy can be considered. Job ID: [id number] [facility]TD[facility]
[2019-01-23 07:29] LABS: ALT (SGPT) 33 U/L (8-55); AST (SGOT) 17 U/L (5-34); Alkaline Phosphatase 172 U/L (40-110); Anion Gap 16 mmol/L (10-20); BUN (Urea Nitrogen) 8 mg/dL (8.4-25.7); Bilirubin, Total 0.6 mg/dL (0.2-1.2); Calc. Creatinine Clearance 162 mL/min (70-130); Calcium 8.8 mg/dL (7.8-10.44); Carbon Dioxide 22 mmol/L (23-31); Chloride 97 mmol/L (98-107); Estimated GFR-MDRD Greater than 90; Globulin 4.2 g/dL (2.4-3.5); Glucose 111 mg/dL (80-115); Potassium 3.3 mmol/L (3.5-5.1); Protein, Total 7.2 g/dL (5.8-8.1); Sodium 132 mmol/L (136-145)
[2019-01-23 07:49] LABS: Band 5 % (5-11); Lymphocytes 4 % (21-51); MDiff Complete? YES; Monocytes 3 % (0-10); Neutrophil 88 % (42-75); Platelet Morphology Comment Appears Increased; RBC Morphology Normal
[2019-01-23] MEDS: Clopidogrel Bisulfate 75 MG TAB PO SCH (08:30)
[2019-01-23] MEDS: Fish Oil 1,000 MG CAP PO SCH (08:30)
[2019-01-23] MEDS: Methocarbamol 500 MG TAB PO SCH ×2 (08:30→21:45)
[2019-01-23] MEDS: Enoxaparin Sodium 40 MG/0.4 ML SYRINGE SC SCH (08:31)
[2019-01-23] MEDS: Lidocaine 5% Patch TD PRN (10:13)
[2019-01-23] MEDS ORDERED: Metoprolol Tartrate 25 MG TAB PO SCH (10:15)
[2019-01-23] MEDS ORDERED: Potassium Chloride 20 MEQ TAB PO SCH (10:15)
[2019-01-23] MEDS: Cyclobenzaprine 10 MG TAB PO PRN (10:22)
[2019-01-23] MEDS: HYDROcodone/Acetaminophen 7.5/325 mg Tablet PO PRN ×2 (10:22→19:42)
[2019-01-23] MEDS: Lisinopril 20 MG TAB PO SCH (10:43)
[2019-01-23] MEDS: Lidocaine Patch Removal 1 EACH TOP SCH ×2 (10:51→21:15)
[2019-01-23] MEDS: Oxacillin 2 GM in Sodium Chloride 0.9% 100 ML IVPB SCH ×3 (13:35→20:38)
--- NOTE | 2019-01-23 14:43 | PQF ---
CLINICAL DOCUMENTATION IMPROVEMENT CLARIFICATION FORM: ICD-10 Updated PLEASE DO AN ADDENDUM TO THE PROGRESS NOTE WITH ANY DOCUMENTATION UPDATES OR ADDITIONS AND CARRY THROUGH TO DC SUMMARY. THANK YOU. DATE: 01/23/19 ATTN: PANCHITO Please exercise your independent, professional judgment in responding to the clarification form. Clinical indicators are provided on the bottom of this form for your review Please check appropriate box(es): [ x ] Sepsis due to: (Pna, UTI, gangrenous gall bladder, etc.) __DUE TO BACTREMIA Due to: [ ] Device (please specify) [ ] Implant [ ] Graft [ ] Infusion [ ] SIRS due to non-infectious process (please specify etiology) [ ] with organ dysfunction [ ] without organ dysfunction [ ] Localized infection without sepsis [ ] Other diagnosis [ ] Unable to determine In addition, please specify: Present on Admission (POA): [ X ] Yes [ ] No [ ] Unable to determine For continuity of documentation, please document condition throughout progress notes and discharge summary. Thank You. CLINICAL INDICATORS - SIGNS / SYMPTOMS / LABS H&P 01/20: "SEPTIC WORKUP WAS DONE IN THE ED" WBC 01/23: 22.1 CRP 01/20: 17.39 TEMP 01/20: 102.1 RISKS: POSSIBLE DISKITIS (PROGRESS NOTE 01/20) TREATMENT: IV FLUIDS (01/22-01/23) IV VANCOMYCIN (ER-01/23) OXACILLAN (STARTED 01/23) CT GUIDED ABSCESS DRAINAGE OF LUMBAR SPINE 01/22 BLOOD CULTURES (01/19 & 01/22) (This form is maintained as a part of the permanent medical record) 2014 [employer] All Rights Reserved [email or web address] Office: [phone] [facility] CENTERDayan
--- NOTE | 2019-01-23 15:00 | PRG ---
DATE OF SERVICE: 01/23/2019 SUBJECTIVE: The patient had a CT-guided aspirate, which yielded a small amount of purulent bloody secretions. Cultures are reviewed below. He is a little bit confused and had some delirium associated with it earlier today. MRI has been ordered. No respiratory symptoms. The pain is about the same. No abdominal pain. A little bit constipated. OBJECTIVE: VITAL SIGNS: T-max 100.2. He is afebrile at this time. GENERAL: Awake, alert, and oriented. Follows commands. LUNGS: Clear. HEART: S1 and S2. Regular rate without murmurs. ABDOMEN: Soft, not distended. BACK: Pain and limitation in range of motion as previously noted. LABORATORY DATA: White cell count 22,000, hemoglobin 12.6, platelets 501. Sodium 132, creatinine 0.5. Staph aureus retrieved from the lumbar abscess aspirate as well as one sample of venous culture and the organism appears to be methicillin-sensitive Staphylococcus aureus as determined by Verigene. ASSESSMENT AND DISCUSSION: Osteoarthrosis, low back; chronic low back problems and pain with worsening of pain and fever; and then what appears to be an intraspinal and extra-spinal infection with abscess formation. No evidence of osteomyelitis at this point in time. MSSA is the culprit, and we will switch him to oxacillin for now. We will need a PICC line placement, and depending on clinical progress, outpatient treatment. MRI has been ordered. We will review the findings and see if he will need a SURYA or not. Job ID: [id number]
--- NOTE | 2019-01-23 18:19 | MRI ---
MRI Brain W WO Con: 01/23/2019 12:36 PM CLINICAL HISTORY: Confusion. COMPARISON: None. FINDINGS: Extra axial spaces: Normal in size and morphology for the patient's age. Acute infarction: None. Ventricular system: Normal in size and morphology for the patient's age. Basal cisterns: Normal. Cerebral parenchyma: Microvascular ischemic changes. Midline shift: None. Cerebellum: Normal. Brainstem: Normal. Paranasal sinuses:Mucosal thickening and retention cyst formation. Bilateral mild mastoid fluid. Intraaxial Enhancement: None IMPRESSION: Moderate microvascular ischemic disease. No acute territorial infarction, mass effect or midline shift.
[2019-01-23] MEDS: Atorvastatin Calcium 40 MG TAB PO SCH (20:38)
[2019-01-23] MEDS: Melatonin 3 MG TAB PO SCH (21:45)
[2019-01-24] MEDS: Oxacillin 2 GM in Sodium Chloride 0.9% 100 ML IVPB SCH ×6 (00:12→20:14)
[2019-01-24] MEDS: HYDROcodone/Acetaminophen 7.5/325 mg Tablet PO PRN (04:05)
[2019-01-24] MEDS: hydrOXYzine 25 MG TAB PO PRN ×2 (04:56→20:14)
[2019-01-24] MEDS: Ibuprofen 200 MG TAB PO PRN ×3 (08:02→22:03)
[2019-01-24] MEDS: cloNIDine 0.1 MG TAB PO PRN ×2 (08:18→17:01)
[2019-01-24] MEDS: Lisinopril 20 MG TAB PO SCH ×3 (08:18→20:14)
[2019-01-24] MEDS: Clopidogrel Bisulfate 75 MG TAB PO SCH (08:19)
[2019-01-24] MEDS: Enoxaparin Sodium 40 MG/0.4 ML SYRINGE SC SCH (08:22)
[2019-01-24] MEDS: hydrALAZINE 25 MG TAB PO SCH ×2 (08:30→20:14)
[2019-01-24] MEDS: Fish Oil 1,000 MG CAP PO SCH (10:18)
[2019-01-24] MEDS: Methocarbamol 500 MG TAB PO SCH ×2 (10:19→20:13)
[2019-01-24] MEDS: Lidocaine Patch Removal 1 EACH TOP SCH ×2 (10:19→20:15)
[2019-01-24 10:20] LABS: #Lymphocytes 1.5 thou/uL (1.20-3.40); #Monocytes 0.9 thou/uL (0.11-0.59); #Neutrophils 13.3 thou/uL (1.40-6.50); %Basophils 0.2 % (0.0-1.0); %Eosinophils 0.3 % (0.0-10.0); %Lymphocytes 9.7 % (21.0-51.0); %Monocytes 5.6 % (0.0-10.0); %Neutrophils 84.3 % (42.0-75.0); Hemoglobin 12.2 g/dL (14.0-18.0); Mean Corpuscular HGB CONC 33.8 g/dL (32.0-36.0); Mean Corpuscular Hemoglobin 27.4 pg (27.0-31.0); Mean Corpuscular Volume 81.1 fL (78.0-98.0); Platelet Count 560 thou/uL (130-400); RBC Distribution Width 13.3 % (11.5-14.5); Red Blood Cell (RBC) Count 4.46 mill/uL (4.70-6.10); White Blood Cell (WBC) Count 15.7 thou/uL (4.8-10.8)
[2019-01-24 10:42] LABS: Anion Gap 13 mmol/L (10-20); BUN (Urea Nitrogen) 10 mg/dL (8.4-25.7); Calc. Creatinine Clearance 145 mL/min (70-130); Calcium 8.5 mg/dL (7.8-10.44); Carbon Dioxide 25 mmol/L (23-31); Chloride 97 mmol/L (98-107); Estimated GFR-MDRD Greater than 90; Glucose 184 mg/dL (80-115); Potassium 3.1 mmol/L (3.5-5.1); Sodium 132 mmol/L (136-145)
[2019-01-24] MEDS: Nitroglycerin 0.4 MG TAB (25 Tab Bottle) SL SCH (11:23)
[2019-01-24] MEDS ORDERED: Potassium Chloride 20 MEQ TAB PO SCH (13:15)
--- NOTE | 2019-01-24 16:50 | PDOC.HOSPP ---
- Subjective Encounter Date: 01/24/19 Encounter Time: 11:30 Subjective: pt up in bed oriented x2 - Objective Vital Signs & Weight: Vital Signs (12 hours) Temp Pulse Resp BP BP Pulse Ox 01/24/19 09:30 85 16 148/76 H 95 01/24/19 08:30 85 190/100 H 95 01/24/19 08:18 190/100 H 01/24/19 08:07 97.6 F 85 16 190/100 H 95 Weight Weight 163 lb 2.273 oz I&O: 01/23/19 01/24/19 01/25/19 06:59 06:59 06:59 Intake Total 2500 1784 Output Total 1800 Balance 700 1784 Result Diagrams: 01/24/19 10:07 01/24/19 10:07 Hospitalist ROS - Review of Systems Cardiovascular: denies: chest pain, palpitations, orthopnea, paroxysmal noc. dyspnea, edema, light headedness, other Gastrointestinal: denies: nausea, vomiting, abdominal pain, diarrhea, constipation, melena, hematochezia, other Genitourinary: denies: dysuria, frequency, incontinence, hematuria, retention, other - Medication Medications: Active Medications Generic Name Dose Route Start Last Admin Trade Name Freq PRN Reason Stop Dose Admin Hydrocodone Bitart/Acetaminophen 1 tab 01/20/19 00:21 01/24/19 04:05 [place] 7.5/325 PO 1 tab Q6H PRN Administration Moderate Pain (4-6) Atorvastatin Calcium 40 mg 01/20/19 21:00 01/23/19 20:38 Lipitor PO 40 mg HS ALBIN Administration Clonidine 0.1 mg 01/22/19 19:46 01/24/19 08:18 Catapres PO 0.1 mg Q4H PRN Administration SBP >180 OR DBP >90 Clopidogrel Bisulfate 75 mg 01/21/19 09:00 01/24/19 08:19 Plavix PO 75 mg DAILY ALBIN Administration Cyclobenzaprine HCl 10 mg 01/19/19 20:15 01/23/19 10:22 Flexeril PO 10 mg TID PRN Administration Muscle Spasm Enoxaparin Sodium 40 mg 01/21/19 09:00 01/24/19 08:22 Lovenox SC 40 mg 0900 ALBIN Administration Fish Oil 1,000 mg 01/21/19 09:00 01/24/19 10:18 Fish Oil PO 1,000 mg DAILY ALBIN Administration Hydralazine HCl 25 mg 01/24/19 09:00 01/24/19 08:30 Apresoline PO 25 mg BID ALBIN Administration Hydroxyzine HCl 50 mg 01/20/19 12:40 01/24/19 04:56 Atarax PO 50 mg Q6H PRN Administration Pain Oxacillin Sodium 2 gm/ Sodium 100 mls @ 200 mls/hr 01/23/19 13:00 01/24/19 13 :34 Chloride IVPB 100 mls Q4HR ALBIN Administration Ibuprofen 600 mg 01/20/19 12:21 01/24/19 08:02 Motrin PO 600 mg Q6H PRN Administration FEVER, PAIN Lidocaine 2 patch 01/19/19 20:16 01/23/19 10:13 Lidoderm 5% Patch TD 2 patch Q24H PRN Administration Pain Lisinopril 20 mg 01/24/19 09:00 01/24/19 08:30 Zestril PO 20 mg BID ALBIN Administration Melatonin 3 mg 01/22/19 21:00 01/23/19 21:45 Melatonin PO 3 mg HS ALBIN Administration Methocarbamol 500 mg 01/20/19 21:00 01/24/19 10:19 Robaxin PO 500 mg BID ALBIN Administration Metoprolol Succinate 50 mg 01/24/19 09:00 01/24/19 08:19 Toprol Xl PO 50 mg DAILY ALBIN Administration Miscellaneous Medication 1 each 01/20/19 09:00 01/24/19 10:19 Lidocaine Patch Removal TOP Not Given Q12HR [facility] Nitroglycerin 0.4 mg 01/24/19 09:30 01/24/19 11:23 Nitrostat SL 01/25/19 09:31 Not Given NOW [facility] Pantoprazole Sodium 40 mg 01/21/19 09:00 01/24/19 08:19 Protonix PO 40 mg DAILY ALBIN Administration Sertraline HCl 25 mg 01/21/19 09:00 01/24/19 08:19 Zoloft PO 25 mg DAILY ALBIN Administration - Exam Heart: RRR, no murmur Respiratory: CTAB, no wheezes Gastrointestinal: soft, non-tender, non-distended Hosp A/P (1) Abnormal liver function test Code(s): R94.5 - ABNORMAL RESULTS OF LIVER FUNCTION STUDIES Status: Acute (2) CAD (coronary artery disease) Code(s): I25.10 - ATHSCL HEART DISEASE OF [place] CORONARY ARTERY W/O ANG PCTRS Status: Acute (3) Fever Code(s): R50.9 - FEVER, UNSPECIFIED Status: Acute (4) S/P CABG x 3 Code(s): Z95.1 - PRESENCE OF AORTOCORONARY BYPASS GRAFT Status: Acute (5) Severe back pain Code(s): M54.9 - DORSALGIA, UNSPECIFIED Status: Acute - Plan pt still has pain to his lower back, will get ID to see pt. will continue abx for now. will check ck. Pt does have stenosis, neurosurgery consulted. 01/24 pt up in bed appear well today compared to yesterday. will order picc line.
--- NOTE | 2019-01-24 16:52 | PDOC.HOSPP ---
- Subjective Encounter Date: 01/23/19 Encounter Time: 11:00 Subjective: pt up in bed appears confused - Objective Vital Signs & Weight: Vital Signs (12 hours) Temp Pulse Resp BP BP Pulse Ox 01/24/19 09:30 85 16 148/76 H 95 01/24/19 08:30 85 190/100 H 95 01/24/19 08:18 190/100 H 01/24/19 08:07 97.6 F 85 16 190/100 H 95 Weight Weight 163 lb 2.273 oz I&O: 01/23/19 01/24/19 01/25/19 06:59 06:59 06:59 Intake Total 2500 1784 Output Total 1800 Balance 700 1784 Result Diagrams: 01/24/19 10:07 01/24/19 10:07 Hospitalist ROS - Review of Systems Cardiovascular: denies: chest pain, palpitations, orthopnea, paroxysmal noc. dyspnea, edema, light headedness, other Gastrointestinal: denies: nausea, vomiting, abdominal pain, diarrhea, constipation, melena, hematochezia, other Genitourinary: denies: dysuria, frequency, incontinence, hematuria, retention, other - Medication Medications: Active Medications Generic Name Dose Route Start Last Admin Trade Name Freq PRN Reason Stop Dose Admin Hydrocodone Bitart/Acetaminophen 1 tab 01/20/19 00:21 01/24/19 04:05 [place] 7.5/325 PO 1 tab Q6H PRN Administration Moderate Pain (4-6) Atorvastatin Calcium 40 mg 01/20/19 21:00 01/23/19 20:38 Lipitor PO 40 mg HS ALBIN Administration Clonidine 0.1 mg 01/22/19 19:46 01/24/19 08:18 Catapres PO 0.1 mg Q4H PRN Administration SBP >180 OR DBP >90 Clopidogrel Bisulfate 75 mg 01/21/19 09:00 01/24/19 08:19 Plavix PO 75 mg DAILY ALBIN Administration Cyclobenzaprine HCl 10 mg 01/19/19 20:15 01/23/19 10:22 Flexeril PO 10 mg TID PRN Administration Muscle Spasm Enoxaparin Sodium 40 mg 01/21/19 09:00 01/24/19 08:22 Lovenox SC 40 mg 0900 ALBIN Administration Fish Oil 1,000 mg 01/21/19 09:00 01/24/19 10:18 Fish Oil PO 1,000 mg DAILY ALBIN Administration Hydralazine HCl 25 mg 01/24/19 09:00 01/24/19 08:30 Apresoline PO 25 mg BID ALBIN Administration Hydroxyzine HCl 50 mg 01/20/19 12:40 01/24/19 04:56 Atarax PO 50 mg Q6H PRN Administration Pain Oxacillin Sodium 2 gm/ Sodium 100 mls @ 200 mls/hr 01/23/19 13:00 01/24/19 13 :34 Chloride IVPB 100 mls Q4HR ALBIN Administration Ibuprofen 600 mg 01/20/19 12:21 01/24/19 08:02 Motrin PO 600 mg Q6H PRN Administration FEVER, PAIN Lidocaine 2 patch 01/19/19 20:16 01/23/19 10:13 Lidoderm 5% Patch TD 2 patch Q24H PRN Administration Pain Lisinopril 20 mg 01/24/19 09:00 01/24/19 08:30 Zestril PO 20 mg BID ALBIN Administration Melatonin 3 mg 01/22/19 21:00 01/23/19 21:45 Melatonin PO 3 mg HS ALBIN Administration Methocarbamol 500 mg 01/20/19 21:00 01/24/19 10:19 Robaxin PO 500 mg BID ALBIN Administration Metoprolol Succinate 50 mg 01/24/19 09:00 01/24/19 08:19 Toprol Xl PO 50 mg DAILY ALBIN Administration Miscellaneous Medication 1 each 01/20/19 09:00 01/24/19 10:19 Lidocaine Patch Removal TOP Not Given Q12HR [facility] Nitroglycerin 0.4 mg 01/24/19 09:30 01/24/19 11:23 Nitrostat SL 01/25/19 09:31 Not Given NOW [facility] Pantoprazole Sodium 40 mg 01/21/19 09:00 01/24/19 08:19 Protonix PO 40 mg DAILY ALBIN Administration Sertraline HCl 25 mg 01/21/19 09:00 01/24/19 08:19 Zoloft PO 25 mg DAILY ALBIN Administration - Exam Heart: negative: RRR, no murmur, no gallops, no rubs, normal peripheral pulses, irregular, diminshed peripheral pulses, murmur present, II/IV, III/IV Respiratory: negative: CTAB, no wheezes, no rales, no ronchi, normal chest expansion, no tachypnea, normal percussion, rales, rhonchi, tachypneic, wheezes Gastrointestinal: negative: soft, non-tender, non-distended, normal bowel sounds , no palpable masses, no hepatomegaly, no splenomegaly, no bruit, no guarding, no rigidity, tender to palpation, distended, diminished bowl sounds, voluntary guarding Neurological: negative: cranial nerve grossly intact, normal sensation to touch , no weakness, no focal deficits, no new deficit, facial droop, hemiplegia, speech deficit, vision deficit Neurological - other findings: more confused compared to yesterday Psychiatric: normal affect Hosp A/P (1) Abnormal liver function test Code(s): R94.5 - ABNORMAL RESULTS OF LIVER FUNCTION STUDIES Status: Acute (2) CAD (coronary artery disease) Code(s): I25.10 - ATHSCL HEART DISEASE OF [place] CORONARY ARTERY W/O ANG PCTRS Status: Acute (3) Fever Code(s): R50.9 - FEVER, UNSPECIFIED Status: Acute (4) S/P CABG x 3 Code(s): Z95.1 - PRESENCE OF AORTOCORONARY BYPASS GRAFT Status: Acute (5) Severe back pain Code(s): M54.9 - DORSALGIA, UNSPECIFIED Status: Acute - Plan pt still has pain to his lower back, will get ID to see pt. will continue abx for now. will check ck. Pt does have stenosis, neurosurgery consulted. 01/23 pt appears confused, will get mri brain, continue abx for now. 01/24 pt up in bed appear well today compared to yesterday. will order picc line.
--- NOTE | 2019-01-24 16:56 | PDOC.HOSPP ---
- Subjective Encounter Date: 01/22/19 Encounter Time: 10:30 Subjective: pt up in bed post ct guided aspiration - Objective Vital Signs & Weight: Vital Signs (12 hours) Temp Pulse Resp BP BP Pulse Ox 01/24/19 09:30 85 16 148/76 H 95 01/24/19 08:30 85 190/100 H 95 01/24/19 08:18 190/100 H 01/24/19 08:07 97.6 F 85 16 190/100 H 95 Weight Weight 163 lb 2.273 oz I&O: 01/23/19 01/24/19 01/25/19 06:59 06:59 06:59 Intake Total 2500 1784 Output Total 1800 Balance 700 1784 Result Diagrams: 01/24/19 10:07 01/24/19 10:07 Hospitalist ROS - Review of Systems Cardiovascular: denies: chest pain, palpitations, orthopnea, paroxysmal noc. dyspnea, edema, light headedness, other Gastrointestinal: denies: nausea, vomiting, abdominal pain, diarrhea, constipation, melena, hematochezia, other Genitourinary: denies: dysuria, frequency, incontinence, hematuria, retention, other - Medication Medications: Active Medications Generic Name Dose Route Start Last Admin Trade Name Freq PRN Reason Stop Dose Admin Hydrocodone Bitart/Acetaminophen 1 tab 01/20/19 00:21 01/24/19 04:05 [place] 7.5/325 PO 1 tab Q6H PRN Administration Moderate Pain (4-6) Atorvastatin Calcium 40 mg 01/20/19 21:00 01/23/19 20:38 Lipitor PO 40 mg HS ALBIN Administration Clonidine 0.1 mg 01/22/19 19:46 01/24/19 08:18 Catapres PO 0.1 mg Q4H PRN Administration SBP >180 OR DBP >90 Clopidogrel Bisulfate 75 mg 01/21/19 09:00 01/24/19 08:19 Plavix PO 75 mg DAILY ALBIN Administration Cyclobenzaprine HCl 10 mg 01/19/19 20:15 01/23/19 10:22 Flexeril PO 10 mg TID PRN Administration Muscle Spasm Enoxaparin Sodium 40 mg 01/21/19 09:00 01/24/19 08:22 Lovenox SC 40 mg 0900 ALBIN Administration Fish Oil 1,000 mg 01/21/19 09:00 01/24/19 10:18 Fish Oil PO 1,000 mg DAILY ALBIN Administration Hydralazine HCl 25 mg 01/24/19 09:00 01/24/19 08:30 Apresoline PO 25 mg BID ALBIN Administration Hydroxyzine HCl 50 mg 01/20/19 12:40 01/24/19 04:56 Atarax PO 50 mg Q6H PRN Administration Pain Oxacillin Sodium 2 gm/ Sodium 100 mls @ 200 mls/hr 01/23/19 13:00 01/24/19 13 :34 Chloride IVPB 100 mls Q4HR ALBIN Administration Ibuprofen 600 mg 01/20/19 12:21 01/24/19 08:02 Motrin PO 600 mg Q6H PRN Administration FEVER, PAIN Lidocaine 2 patch 01/19/19 20:16 01/23/19 10:13 Lidoderm 5% Patch TD 2 patch Q24H PRN Administration Pain Lisinopril 20 mg 01/24/19 09:00 01/24/19 08:30 Zestril PO 20 mg BID ALBIN Administration Melatonin 3 mg 01/22/19 21:00 01/23/19 21:45 Melatonin PO 3 mg HS ALBIN Administration Methocarbamol 500 mg 01/20/19 21:00 01/24/19 10:19 Robaxin PO 500 mg BID ALBIN Administration Metoprolol Succinate 50 mg 01/24/19 09:00 01/24/19 08:19 Toprol Xl PO 50 mg DAILY ALBIN Administration Miscellaneous Medication 1 each 01/20/19 09:00 01/24/19 10:19 Lidocaine Patch Removal TOP Not Given Q12HR [facility] Nitroglycerin 0.4 mg 01/24/19 09:30 01/24/19 11:23 Nitrostat SL 01/25/19 09:31 Not Given NOW [facility] Pantoprazole Sodium 40 mg 01/21/19 09:00 01/24/19 08:19 Protonix PO 40 mg DAILY ALBIN Administration Sertraline HCl 25 mg 01/21/19 09:00 01/24/19 08:19 Zoloft PO 25 mg DAILY ALBIN Administration - Exam Heart: negative: RRR, no murmur, no gallops, no rubs, normal peripheral pulses, irregular, diminshed peripheral pulses, murmur present, II/IV, III/IV Respiratory: negative: CTAB, no wheezes, no rales, no ronchi, normal chest expansion, no tachypnea, normal percussion, rales, rhonchi, tachypneic, wheezes Gastrointestinal: negative: soft, non-tender, non-distended, normal bowel sounds , no palpable masses, no hepatomegaly, no splenomegaly, no bruit, no guarding, no rigidity, tender to palpation, distended, diminished bowl sounds, voluntary guarding Hosp A/P (1) Abnormal liver function test Code(s): R94.5 - ABNORMAL RESULTS OF LIVER FUNCTION STUDIES Status: Acute (2) CAD (coronary artery disease) Code(s): I25.10 - ATHSCL HEART DISEASE OF [place] CORONARY ARTERY W/O ANG PCTRS Status: Acute (3) Fever Code(s): R50.9 - FEVER, UNSPECIFIED Status: Acute (4) S/P CABG x 3 Code(s): Z95.1 - PRESENCE OF AORTOCORONARY BYPASS GRAFT Status: Acute (5) Severe back pain Code(s): M54.9 - DORSALGIA, UNSPECIFIED Status: Acute - Plan pt still has pain to his lower back, will get ID to see pt. will continue abx for now. will check ck. Pt does have stenosis, neurosurgery consulted. 01/22 pt post procedure will monitor and continue abx 01/23 pt appears confused, will get mri brain, continue abx for now. 01/24 pt up in bed appear well today compared to yesterday. will order picc line.
[2019-01-24] MEDS: Melatonin 3 MG TAB PO SCH (20:13)
[2019-01-24] MEDS: Atorvastatin Calcium 40 MG TAB PO SCH (20:13)
[2019-01-24] MEDS: Cyclobenzaprine 10 MG TAB PO PRN (20:54)
[2019-01-25] MEDS: Oxacillin 2 GM in Sodium Chloride 0.9% 100 ML IVPB SCH ×4 (00:10→15:28)
[2019-01-25] MEDS: HYDROcodone/Acetaminophen 7.5/325 mg Tablet PO PRN ×2 (00:18→23:42)
[2019-01-25] MEDS: Cyclobenzaprine 10 MG TAB PO PRN (04:04)
[2019-01-25] MEDS: hydrOXYzine 25 MG TAB PO PRN ×2 (04:04→22:31)
[2019-01-25] MEDS: Ibuprofen 200 MG TAB PO PRN ×3 (05:45→22:31)
[2019-01-25 05:50] LABS: #Basophils 0.1 thou/uL (0.0-0.2); #Monocytes 0.9 thou/uL (0.11-0.59); #Neutrophils 10.6 thou/uL (1.40-6.50); %Basophils 0.6 % (0.0-1.0); %Eosinophils 0.4 % (0.0-10.0); %Lymphocytes 14.5 % (21.0-51.0); %Monocytes 6.7 % (0.0-10.0); %Neutrophils 77.9 % (42.0-75.0); Hemoglobin 12.3 g/dL (14.0-18.0); Mean Corpuscular HGB CONC 33.9 g/dL (32.0-36.0); Mean Corpuscular Hemoglobin 28.2 pg (27.0-31.0); Mean Corpuscular Volume 83.2 fL (78.0-98.0); Mean Platelet Volume 6.9 fL (7.4-10.4); Platelet Count 614 thou/uL (130-400); RBC Distribution Width 13.2 % (11.5-14.5); Red Blood Cell (RBC) Count 4.34 mill/uL (4.70-6.10); White Blood Cell (WBC) Count 13.6 thou/uL (4.8-10.8)
[2019-01-25 06:12] LABS: Anion Gap 14 mmol/L (10-20); BUN (Urea Nitrogen) 7 mg/dL (8.4-25.7); Calc. Creatinine Clearance 166 mL/min (70-130); Calcium 8.7 mg/dL (7.8-10.44); Carbon Dioxide 23 mmol/L (23-31); Chloride 98 mmol/L (98-107); Estimated GFR-MDRD Greater than 90; Glucose 102 mg/dL (80-115); Potassium 3.1 mmol/L (3.5-5.1); Sodium 132 mmol/L (136-145)
[2019-01-25] MEDS: Methocarbamol 500 MG TAB PO SCH ×2 (09:01→20:54)
[2019-01-25] MEDS: hydrALAZINE 25 MG TAB PO SCH ×2 (09:01→20:55)
[2019-01-25] MEDS: Fish Oil 1,000 MG CAP PO SCH (09:02)
[2019-01-25] MEDS: Clopidogrel Bisulfate 75 MG TAB PO SCH (09:02)
[2019-01-25] MEDS: Lisinopril 20 MG TAB PO SCH ×2 (09:02→20:54)
[2019-01-25] MEDS: Lidocaine 5% Patch TD PRN (09:12)
[2019-01-25] MEDS: Enoxaparin Sodium 40 MG/0.4 ML SYRINGE SC SCH (09:56)
[2019-01-25] MEDS: Lidocaine Patch Removal 1 EACH TOP SCH ×2 (09:57→20:55)
[2019-01-25] MEDS: Nitroglycerin 0.4 MG TAB (25 Tab Bottle) SL SCH (09:57)
[2019-01-25] MEDS: traMADol HCl 50 MG TAB PO PRN (10:03)
[2019-01-25] MEDS ORDERED: Potassium Chloride 20 MEQ TAB PO SCH (14:30)
[2019-01-25] MEDS ORDERED: Potassium Chloride 10 MEQ in Premix Bag 1 BAG IVPB SCH (14:30)
--- NOTE | 2019-01-25 15:15 | SPC ---
PERIPHERAL INSERTION CENTRAL CATHETER: INDICATIONS: IV antibiotic treatment. FINDINGS: A single lumen 5 [place] PICC line was placed into the left brachial vein proximal humerus region unde r ultrasound guidance. The tip was positioned in the SVC and confirmed with fluoroscopy. PROCEDURE IN DETAIL: The left upper extremity was prepped and draped in a sterile manner. Ultrasound was used to assess th e venous structures. The brachial vein adjacent to the brachial artery was chosen for puncture, in th e upper humerus region. Local anesthesia was administered with Lidocaine. This vein was punctured und er ultrasound guidance with micropuncture technique. A wire was advanced into the vein. The tip of th e wire was positioned in the SVC. Catheter length was measured and cut. A sheath was placed over the wire. The catheter was advanced over the wire. The peel-away sheath was removed. The wire was removed . The catheter was flushed and secured with a sterile dressing. POS: [facility]
[2019-01-25] MEDS: Fioricet 325/50/40 mg Tablet PO PRN ×2 (16:28→20:54)
--- NOTE | 2019-01-25 17:34 | PDOC.HOSPP ---
- Subjective Encounter Date: 01/25/19 Encounter Time: 10:30 Subjective: pt up in bed no complains, family updated - Objective Vital Signs & Weight: Vital Signs (12 hours) Temp Pulse Resp BP BP Pulse Ox 01/25/19 09:02 177/81 H 01/25/19 09:01 90 177/81 H 01/25/19 08:10 94 L 01/25/19 08:00 98.1 F 90 18 177/81 H 94 L Weight Weight 163 lb 2.273 oz I&O: 01/24/19 01/25/19 01/26/19 06:59 06:59 06:59 Intake Total 1783 2105 Balance 1783 2105 Result Diagrams: 01/25/19 05:16 01/25/19 05:16 Hospitalist ROS - Review of Systems Respiratory: denies: cough, dry, shortness of breath, hemoptysis, SOB with excertion, pleuritic pain, sputum, wheezing, other Cardiovascular: denies: chest pain, palpitations, orthopnea, paroxysmal noc. dyspnea, edema, light headedness, other Gastrointestinal: denies: nausea, vomiting, abdominal pain, diarrhea, constipation, melena, hematochezia, other - Medication Medications: Active Medications Generic Name Dose Route Start Last Admin Trade Name Freq PRN Reason Stop Dose Admin Acetaminophen/Butalbital/Caffeine 1 tab 01/25/19 14:23 01/25/19 16:28 Fioricet PO 01/30/19 14:24 1 tab Q4H PRN Administration Headache Hydrocodone Bitart/Acetaminophen 1 tab 01/20/19 00:21 01/25/19 00:18 [place] 7.5/325 PO 1 tab Q6H PRN Administration Moderate Pain (4-6) Atorvastatin Calcium 40 mg 01/20/19 21:00 01/24/19 20:13 Lipitor PO 40 mg HS ALBIN Administration Clonidine 0.1 mg 01/22/19 19:46 01/24/19 17:01 Catapres PO 0.1 mg Q4H PRN Administration SBP >180 OR DBP >90 Clopidogrel Bisulfate 75 mg 01/21/19 09:00 01/25/19 09:02 Plavix PO 75 mg DAILY ALBIN Administration Cyclobenzaprine HCl 10 mg 01/19/19 20:15 01/25/19 04:04 Flexeril PO 10 mg TID PRN Administration Muscle Spasm Enoxaparin Sodium 40 mg 01/21/19 09:00 01/25/19 09:56 Lovenox SC Not Given 0900 [facility] Fish Oil 1,000 mg 01/21/19 09:00 01/25/19 09:02 Fish Oil PO 1,000 mg DAILY ALBIN Administration Hydroxyzine HCl 50 mg 01/20/19 12:40 01/25/19 04:04 Atarax PO 50 mg Q6H PRN Administration Pain Ibuprofen 600 mg 01/20/19 12:21 01/25/19 13:54 Motrin PO 600 mg Q6H PRN Administration FEVER, PAIN Lidocaine 2 patch 01/19/19 20:16 01/25/19 09:12 Lidoderm 5% Patch TD 2 patch Q24H PRN Administration Pain Lisinopril 20 mg 01/24/19 09:00 01/25/19 09:02 Zestril PO 20 mg BID ALBIN Administration Melatonin 3 mg 01/22/19 21:00 01/24/19 20:13 Melatonin PO 3 mg HS ALBIN Administration Methocarbamol 500 mg 01/20/19 21:00 01/25/19 09:01 Robaxin PO 500 mg BID ALBIN Administration Metoprolol Succinate 50 mg 01/24/19 09:00 01/25/19 09:02 Toprol Xl PO 50 mg DAILY ALBIN Administration Miscellaneous Medication 1 each 01/20/19 09:00 01/25/19 09:57 Lidocaine Patch Removal TOP Not Given Q12HR ALBIN Pantoprazole Sodium 40 mg 01/21/19 09:00 01/25/19 09:02 Protonix PO 40 mg DAILY ALBIN Administration Sertraline HCl 25 mg 01/21/19 09:00 01/25/19 09:02 Zoloft PO 25 mg DAILY ALBIN Administration Tramadol HCl 25 mg 01/25/19 09:16 01/25/19 10:03 Ultram PO 25 mg Q6H PRN Administration Fever/Mild Pain - Exam Neck: negative: supple, symmetric, no JVD, no thyromegaly, no lymphadenopathy, no carotid bruit, JVD Heart: negative: RRR, no murmur, no gallops, no rubs, normal peripheral pulses, irregular, diminshed peripheral pulses, murmur present, II/IV, III/IV Respiratory: negative: CTAB, no wheezes, no rales, no ronchi, normal chest expansion, no tachypnea, normal percussion, rales, rhonchi, tachypneic, wheezes Hosp A/P (1) Abnormal liver function test Code(s): R94.5 - ABNORMAL RESULTS OF LIVER FUNCTION STUDIES Status: Acute (2) CAD (coronary artery disease) Code(s): I25.10 - ATHSCL HEART DISEASE OF [place] CORONARY ARTERY W/O ANG PCTRS Status: Acute (3) Fever Code(s): R50.9 - FEVER, UNSPECIFIED Status: Acute (4) S/P CABG x 3 Code(s): Z95.1 - PRESENCE OF AORTOCORONARY BYPASS GRAFT Status: Acute (5) Severe back pain Code(s): M54.9 - DORSALGIA, UNSPECIFIED Status: Acute - Plan pt still has pain to his lower back, will get ID to see pt. will continue abx for now. will check ck. Pt does have stenosis, neurosurgery consulted. 01/24 pt up in bed appear well today compared to yesterday. will order picc line. 01/25 pt will go for his picc line, ? SURYA if not he will be discharged home and follow up with his pcp and ID
[2019-01-25] MEDS: Melatonin 3 MG TAB PO SCH (20:54)
[2019-01-25] MEDS: Atorvastatin Calcium 40 MG TAB PO SCH (20:54)
[2019-01-25] MEDS: CEFAZOLIN 2 GM in Premix Bag 1 BAG IVPB SCH (21:04)
[2019-01-25] MEDS: cloNIDine 0.1 MG TAB PO PRN (23:42)
[2019-01-26] MEDS: Fioricet 325/50/40 mg Tablet PO PRN ×3 (00:51→22:24)
[2019-01-26] MEDS: CEFAZOLIN 2 GM in Premix Bag 1 BAG IVPB SCH ×3 (05:32→20:16)
[2019-01-26] MEDS: HYDROcodone/Acetaminophen 7.5/325 mg Tablet PO PRN ×3 (07:53→22:24)
[2019-01-26] MEDS: hydrALAZINE 25 MG TAB PO SCH ×3 (08:00→20:22)
[2019-01-26] MEDS: Fish Oil 1,000 MG CAP PO SCH (08:00)
[2019-01-26] MEDS: Lisinopril 20 MG TAB PO SCH ×2 (08:01→20:22)
[2019-01-26] MEDS: Clopidogrel Bisulfate 75 MG TAB PO SCH (08:02)
[2019-01-26] MEDS: Methocarbamol 500 MG TAB PO SCH (08:02)
[2019-01-26] MEDS: Lidocaine Patch Removal 1 EACH TOP SCH ×2 (08:03→20:23)
[2019-01-26 08:09] LABS: Fungus Stain Final report (.)
[2019-01-26 09:42] LABS: #Basophils 0.1 thou/uL (0.0-0.2); #Eosinphils 0.1 thou/uL (0.0-0.7); #Lymphocytes 1.9 thou/uL (1.20-3.40); #Monocytes 0.9 thou/uL (0.11-0.59); %Basophils 0.4 % (0.0-1.0); %Eosinophils 0.7 % (0.0-10.0); %Lymphocytes 14.6 % (21.0-51.0); %Monocytes 7.1 % (0.0-10.0); %Neutrophils 77.2 % (42.0-75.0); Hemoglobin 12.7 g/dL (14.0-18.0); Mean Corpuscular HGB CONC 32.5 g/dL (32.0-36.0); Mean Corpuscular Hemoglobin 27.3 pg (27.0-31.0); Mean Corpuscular Volume 83.9 fL (78.0-98.0); Mean Platelet Volume 6.6 fL (7.4-10.4); Platelet Count 770 thou/uL (130-400); RBC Distribution Width 13.2 % (11.5-14.5); Red Blood Cell (RBC) Count 4.66 mill/uL (4.70-6.10)
[2019-01-26] MEDS: Enoxaparin Sodium 40 MG/0.4 ML SYRINGE SC SCH (09:53)
[2019-01-26 10:00] LABS: Anion Gap 14 mmol/L (10-20); BUN (Urea Nitrogen) 9 mg/dL (8.4-25.7); Calc. Creatinine Clearance 145 mL/min (70-130); Calcium 9.1 mg/dL (7.8-10.44); Carbon Dioxide 24 mmol/L (23-31); Chloride 99 mmol/L (98-107); Estimated GFR-MDRD Greater than 90; Glucose 115 mg/dL (80-115); Potassium 3.5 mmol/L (3.5-5.1); Sodium 133 mmol/L (136-145)
[2019-01-26] MEDS: Ibuprofen 200 MG TAB PO PRN (10:31)
[2019-01-26] MEDS ORDERED: Methyl Salicylate/Menthol 85 GM TUBE TOP PRN (11:06)
[2019-01-26] MEDS ORDERED: ALPRAZolam 0.25 MG TAB PO SCH (11:15)
[2019-01-26] MEDS: traMADol HCl 50 MG TAB PO PRN (12:24)
[2019-01-26] MEDS: Cyclobenzaprine 10 MG TAB PO SCH ×2 (14:31→20:22)
[2019-01-26] MEDS: Ibuprofen 200 MG TAB PO SCH ×2 (14:32→20:21)
[2019-01-26] MEDS ORDERED: Metoclopramide HCl 10 MG/2 ML VIAL IVP SCH (15:30)
[2019-01-26] MEDS ORDERED: diphenhydrAMINE 12.5 MG in Sodium Chloride 0.9% 50 ML IVPB SCH (15:30)
--- NOTE | 2019-01-26 15:33 | PDOC.HOSPP ---
- Objective Vital Signs & Weight: Vital Signs (12 hours) Temp Pulse Resp BP BP BP Pulse Ox 01/26/19 14:31 97 134/81 01/26/19 12:02 97.6 F 97 20 134/81 96 01/26/19 09:45 127/72 01/26/19 08:01 171/93 H 01/26/19 08:00 96 171/93 H 95 01/26/19 07:52 97.9 F 100 16 171/93 H 95 01/26/19 04:41 97.9 F 77 16 106/67 94 L Weight Weight 163 lb 2.273 oz I&O: 01/25/19 01/26/19 01/27/19 06:59 06:59 06:59 Intake Total 2105 2540 Balance 2105 2540 Result Diagrams: 01/26/19 09:32 01/26/19 09:32 Hospitalist ROS - Medication Medications: Active Medications Generic Name Dose Route Start Last Admin Trade Name Freq PRN Reason Stop Dose Admin Acetaminophen/Butalbital/Caffeine 1 tab 01/25/19 14:23 01/26/19 07:59 Fioricet PO 01/30/19 14:24 1 tab Q4H PRN Administration Headache Hydrocodone Bitart/Acetaminophen 1 tab 01/20/19 00:21 01/26/19 13:37 [place] 7.5/325 PO 1 tab Q6H PRN Administration Moderate Pain (4-6) Atorvastatin Calcium 40 mg 01/20/19 21:00 01/25/19 20:54 Lipitor PO 40 mg HS ALBIN Administration Clonidine 0.1 mg 01/22/19 19:46 01/25/19 23:42 Catapres PO 0.1 mg Q4H PRN Administration SBP >180 OR DBP >90 Clopidogrel Bisulfate 75 mg 01/21/19 09:00 01/26/19 08:02 Plavix PO 75 mg DAILY ALBIN Administration Cyclobenzaprine HCl 10 mg 01/26/19 15:00 01/26/19 14:31 Flexeril PO 10 mg TID ALBIN Administration Enoxaparin Sodium 40 mg 01/21/19 09:00 01/26/19 09:53 Lovenox SC 40 mg 0900 ALBIN Administration Fish Oil 1,000 mg 01/21/19 09:00 01/26/19 08:00 Fish Oil PO 1,000 mg DAILY ALBIN Administration Hydralazine HCl 50 mg 01/26/19 15:00 01/26/19 14:31 Apresoline PO 50 mg TID ALBIN Administration Hydroxyzine HCl 50 mg 01/20/19 12:40 01/25/19 22:31 Atarax PO 50 mg Q6H PRN Administration Pain Cefazolin Sodium/Dextrose 2 gm 50 mls @ 100 mls/hr 01/25/19 22:00 01/26/19 13 :38 / Device IVPB 50 mls Q8HR ALBIN Administration Ibuprofen 600 mg 01/26/19 15:00 01/26/19 14:32 Motrin PO 600 mg TID ALBIN Administration Lidocaine 2 patch 01/19/19 20:16 01/25/19 09:12 Lidoderm 5% Patch TD 2 patch Q24H PRN Administration Pain Lisinopril 20 mg 01/24/19 09:00 01/26/19 08:01 Zestril PO 20 mg BID ALBIN Administration Melatonin 3 mg 01/22/19 21:00 01/25/19 20:54 Melatonin PO 3 mg HS ALBIN Administration Menthol/Methyl Salicylate 1 gm 01/26/19 11:06 01/26/19 14:36 Muscle Rub Cream ([place]) TOP 1 gm QIDPRN PRN Administration Pain Methocarbamol 500 mg 01/20/19 21:00 01/26/19 08:02 Robaxin PO 500 mg BID ALBIN Administration Metoprolol Succinate 50 mg 01/24/19 09:00 01/26/19 08:01 Toprol Xl PO 50 mg DAILY ALBIN Administration Miscellaneous Medication 1 each 01/20/19 09:00 01/26/19 08:03 Lidocaine Patch Removal TOP Not Given Q12HR [facility] Pantoprazole Sodium 40 mg 01/21/19 09:00 01/26/19 08:02 Protonix PO 40 mg DAILY ALBIN Administration Sertraline HCl 25 mg 01/21/19 09:00 01/26/19 08:00 Zoloft PO 25 mg DAILY ALBIN Administration Tramadol HCl 25 mg 01/25/19 09:16 01/26/19 12:24 Ultram PO 25 mg Q6H PRN Administration Fever/Mild Pain Hosp A/P (1) Abnormal liver function test Code(s): R94.5 - ABNORMAL RESULTS OF LIVER FUNCTION STUDIES Status: Acute (2) CAD (coronary artery disease) Code(s): I25.10 - ATHSCL HEART DISEASE OF [place] CORONARY ARTERY W/O ANG PCTRS Status: Acute (3) Fever Code(s): R50.9 - FEVER, UNSPECIFIED Status: Acute (4) S/P CABG x 3 Code(s): Z95.1 - PRESENCE OF AORTOCORONARY BYPASS GRAFT Status: Acute (5) Severe back pain Code(s): M54.9 - DORSALGIA, UNSPECIFIED Status: Acute (6) Headache Code(s): R51 - HEADACHE Status: Acute - Plan pt still has pain to his lower back, will get ID to see pt. will continue abx for now. will check ck. Pt does have stenosis, neurosurgery consulted. 01/24 pt up in bed appear well today compared to yesterday. will order picc line. 01/25 pt will go for his picc line, ? SURYA if not he will be discharged home and follow up with his pcp and ID 01/26 pt now has a headache which has not improved. i did consult anesthesia to see if possible csf leak could be causing his pain. Anesthesia does not think so. will get neurology to evaluate pt. i will continue Motrin/muscle relaxant and fiorcet as needed. will give him Reglan and Benadryl.
[2019-01-26] MEDS: Melatonin 3 MG TAB PO SCH (20:21)
[2019-01-26] MEDS: Atorvastatin Calcium 40 MG TAB PO SCH (20:22)
[2019-01-26] MEDS: hydrOXYzine 25 MG TAB PO PRN (22:24)
--- NOTE | 2019-01-27 00:59 | CON ---
DATE OF CONSULTATION: 01/26/2019 CONSULTING PHYSICIAN: Hospitalist Service. IMPRESSION: This gentleman has a persistent headache that does not vary significantly with some postural alteration. I suspect that he may have a mild leptomeningeal infection given the location of his abscess. His treatment is appropriate. I do not see any value in doing a lumbar puncture given it could facilitate the spread of infection in the region to the epidural space or otherwise. PLAN: 1. Continue antibiotics. 2. Narcotics as needed for pain control. HISTORY OF PRESENT ILLNESS: Mr. Mccartney is a 63-year-old man who came in with complaints of back pain. He was found to have evidence of a lumbar abscess. The abscess was drained percutaneously. Following the procedure, he started experiencing a headache. The headache is fairly global. There is some associated nausea. He denies any blurred vision, double vision, light sensitivity, or sound sensitivity. He rates it at a 5/10 as I was talking to him, he was sitting up he reported a minor increase to 7/10. He has no past history of headache problems. He has grown out MRSA out of the culture. Dr. Hubbard has been consulted and his antibiotics have been adjusted. PAST MEDICAL HISTORY: Hypertension, coronary artery disease. PAST SURGICAL HISTORY: Pacemaker implantation. ALLERGIES: FENTANYL. SOCIAL HISTORY: No illicit drug use or alcohol abuse. FAMILY HISTORY: Noncontributory. REVIEW OF SYSTEMS: 10-system review of systems is otherwise negative. PHYSICAL EXAMINATION: GENERAL: He is a reasonably healthy-appearing middle-aged man, in minimal distress. HEENT: Pupils equal and reactive. Conjunctivae clear. Oropharynx clear. NECK: Bit painful for flexion. EXTREMITIES: No cyanosis, clubbing, or edema. NEUROLOGIC: He was alert and appropriate. His speech was fluent and clear. Cranial nerves were intact. 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 He had no fix or drift. There was no tremor or dysmetria. Sensation is intact to touch. Gait was not tested. SUMMARY: I agree with current management. I would treat his pain as necessary with narcotic of your choice. Job ID: [id number]
[2019-01-27] MEDS: Fioricet 325/50/40 mg Tablet PO PRN ×4 (04:47→22:10)
[2019-01-27] MEDS: hydrOXYzine 25 MG TAB PO PRN ×3 (04:47→17:25)
[2019-01-27] MEDS: CEFAZOLIN 2 GM in Premix Bag 1 BAG IVPB SCH ×3 (04:47→20:54)
[2019-01-27] MEDS: HYDROcodone/Acetaminophen 7.5/325 mg Tablet PO PRN ×4 (04:48→22:10)
[2019-01-27] MEDS: Cyclobenzaprine 10 MG TAB PO SCH ×3 (08:55→20:51)
[2019-01-27] MEDS: hydrALAZINE 25 MG TAB PO SCH ×3 (08:55→20:53)
[2019-01-27] MEDS: Fish Oil 1,000 MG CAP PO SCH (08:55)
[2019-01-27] MEDS: Lisinopril 20 MG TAB PO SCH ×2 (08:56→20:51)
[2019-01-27] MEDS: Clopidogrel Bisulfate 75 MG TAB PO SCH (08:56)
[2019-01-27] MEDS: Enoxaparin Sodium 40 MG/0.4 ML SYRINGE SC SCH (08:57)
[2019-01-27] MEDS: Ibuprofen 200 MG TAB PO SCH ×3 (08:57→20:51)
[2019-01-27] MEDS: Lidocaine Patch Removal 1 EACH TOP SCH ×2 (10:28→20:54)
--- NOTE | 2019-01-27 19:33 | PDOC.HOSPP ---
- Subjective Encounter Date: 01/27/19 Encounter Time: 09:00 Subjective: pt up in bed still has a headache - Objective Vital Signs & Weight: Vital Signs (12 hours) Temp Pulse Resp BP BP BP Pulse Ox 01/27/19 18:59 98.5 F 92 20 125/74 96 01/27/19 13:59 104/65 01/27/19 08:56 155/86 H 01/27/19 08:55 96 155/86 H 01/27/19 07:56 97.8 F 96 20 155/86 H 94 L Weight Weight 163 lb 2.273 oz I&O: 01/26/19 01/27/19 01/28/19 06:59 06:59 06:59 Intake Total 2540 1025 Balance 2540 1025 Result Diagrams: 01/26/19 09:32 01/26/19 09:32 Hospitalist ROS - Review of Systems Gastrointestinal: denies: nausea, vomiting, abdominal pain, diarrhea, constipation, melena, hematochezia, other Genitourinary: denies: dysuria, frequency, incontinence, hematuria, retention, other Musculoskeletal: denies: neck pain, shoulder pain, arm pain, back pain, hand pain, leg pain, foot pain, other - Medication Medications: Active Medications Generic Name Dose Route Start Last Admin Trade Name Freq PRN Reason Stop Dose Admin Acetaminophen/Butalbital/Caffeine 1 tab 01/25/19 14:23 01/27/19 17:25 Fioricet PO 01/30/19 14:24 1 tab Q4H PRN Administration Headache Hydrocodone Bitart/Acetaminophen 1 tab 01/20/19 00:21 01/27/19 17:25 [place] 7.5/325 PO 1 tab Q6H PRN Administration Moderate Pain (4-6) Atorvastatin Calcium 40 mg 01/20/19 21:00 01/26/19 20:22 Lipitor PO 40 mg HS ALBIN Administration Clonidine 0.1 mg 01/22/19 19:46 01/25/19 23:42 Catapres PO 0.1 mg Q4H PRN Administration SBP >180 OR DBP >90 Clopidogrel Bisulfate 75 mg 01/21/19 09:00 01/27/19 08:56 Plavix PO 75 mg DAILY ALBIN Administration Cyclobenzaprine HCl 10 mg 01/26/19 15:00 01/27/19 13:59 Flexeril PO 10 mg TID ALBIN Administration Enoxaparin Sodium 40 mg 01/21/19 09:00 01/27/19 08:57 Lovenox SC 40 mg 0900 ALBIN Administration Fish Oil 1,000 mg 01/21/19 09:00 01/27/19 08:55 Fish Oil PO 1,000 mg DAILY ALBIN Administration Hydralazine HCl 50 mg 01/26/19 15:00 01/27/19 13:59 Apresoline PO Not Given TID ALBIN Hydroxyzine HCl 50 mg 01/20/19 12:40 01/27/19 17:25 Atarax PO 50 mg Q6H PRN Administration Pain Cefazolin Sodium/Dextrose 2 gm 50 mls @ 100 mls/hr 01/25/19 22:00 01/27/19 13 :58 / Device IVPB 50 mls Q8HR ALBIN Administration Ibuprofen 600 mg 01/26/19 15:00 01/27/19 14:00 Motrin PO 600 mg TID ALBIN Administration Lidocaine 2 patch 01/19/19 20:16 01/25/19 09:12 Lidoderm 5% Patch TD 2 patch Q24H PRN Administration Pain Lisinopril 20 mg 01/24/19 09:00 01/27/19 08:56 Zestril PO 20 mg BID ALBIN Administration Melatonin 3 mg 01/22/19 21:00 01/26/19 20:21 Melatonin PO 3 mg HS ALBIN Administration Menthol/Methyl Salicylate 1 gm 01/26/19 11:06 01/26/19 14:36 Muscle Rub Cream (Bengay) TOP 1 gm QIDPRN PRN Administration Pain Methocarbamol 500 mg 01/20/19 21:00 01/26/19 08:02 Robaxin PO 500 mg BID ALBIN Administration Metoprolol Succinate 50 mg 01/24/19 09:00 01/27/19 08:56 Toprol Xl PO 50 mg DAILY ALBIN Administration Miscellaneous Medication 1 each 01/20/19 09:00 01/27/19 10:28 Lidocaine Patch Removal TOP Not Given Q12HR ALBIN Pantoprazole Sodium 40 mg 01/21/19 09:00 01/27/19 08:56 Protonix PO 40 mg DAILY ALBIN Administration Sertraline HCl 25 mg 01/21/19 09:00 01/27/19 08:56 Zoloft PO 25 mg DAILY ALBIN Administration Tramadol HCl 25 mg 01/25/19 09:16 01/26/19 12:24 Ultram PO 25 mg Q6H PRN Administration Fever/Mild Pain - Exam Neck: negative: supple, symmetric, no JVD, no thyromegaly, no lymphadenopathy, no carotid bruit, JVD Heart: negative: RRR, no murmur, no gallops, no rubs, normal peripheral pulses, irregular, diminshed peripheral pulses, murmur present, II/IV, III/IV Respiratory: negative: CTAB, no wheezes, no rales, no ronchi, normal chest expansion, no tachypnea, normal percussion, rales, rhonchi, tachypneic, wheezes Hosp A/P (1) Abnormal liver function test Code(s): R94.5 - ABNORMAL RESULTS OF LIVER FUNCTION STUDIES Status: Acute (2) CAD (coronary artery disease) Code(s): I25.10 - ATHSCL HEART DISEASE OF [place] CORONARY ARTERY W/O ANG PCTRS Status: Acute (3) Fever Code(s): R50.9 - FEVER, UNSPECIFIED Status: Acute (4) S/P CABG x 3 Code(s): Z95.1 - PRESENCE OF AORTOCORONARY BYPASS GRAFT Status: Acute (5) Severe back pain Code(s): M54.9 - DORSALGIA, UNSPECIFIED Status: Acute (6) Headache Code(s): R51 - HEADACHE Status: Acute - Plan pt still has pain to his lower back, will get ID to see pt. will continue abx for now. will check ck. Pt does have stenosis, neurosurgery consulted. 01/24 pt up in bed appear well today compared to yesterday. will order picc line. 01/25 pt will go for his picc line, ? SURYA if not he will be discharged home and follow up with his pcp and ID 01/26 pt now has a headache which has not improved. i did consult anesthesia to see if possible csf leak could be causing his pain. Anesthesia does not think so. will get neurology to evaluate pt. i will continue Motrin/muscle relaxant and fiorcet as needed. will give him Reglan and Benadryl. 01/27 spoke with ID and neuro who thinks headache is due to meningeal irritation. will continue current abx.
[2019-01-27] MEDS: Methocarbamol 500 MG TAB PO SCH (20:50)
[2019-01-27] MEDS: Melatonin 3 MG TAB PO SCH (20:50)
[2019-01-27] MEDS: Atorvastatin Calcium 40 MG TAB PO SCH (20:51)
[2019-01-28] MEDS: traMADol HCl 50 MG TAB PO PRN (02:39)
[2019-01-28] MEDS: hydrOXYzine 25 MG TAB PO PRN ×2 (02:39→09:14)
[2019-01-28] MEDS: Fioricet 325/50/40 mg Tablet PO PRN ×3 (02:39→15:26)
[2019-01-28] MEDS: HYDROcodone/Acetaminophen 7.5/325 mg Tablet PO PRN ×2 (05:54→15:48)
[2019-01-28] MEDS: CEFAZOLIN 2 GM in Premix Bag 1 BAG IVPB SCH ×3 (05:54→19:39)
[2019-01-28] MEDS: Ibuprofen 200 MG TAB PO SCH ×3 (08:12→19:36)
[2019-01-28] MEDS: Methocarbamol 500 MG TAB PO SCH ×2 (08:12→19:37)
[2019-01-28] MEDS: Cyclobenzaprine 10 MG TAB PO SCH ×4 (08:12→19:37)
[2019-01-28] MEDS: Clopidogrel Bisulfate 75 MG TAB PO SCH (08:12)
[2019-01-28] MEDS: Lisinopril 20 MG TAB PO SCH ×2 (08:13→19:37)
[2019-01-28] MEDS: hydrALAZINE 25 MG TAB PO SCH ×3 (08:13→19:38)
[2019-01-28] MEDS: Enoxaparin Sodium 40 MG/0.4 ML SYRINGE SC SCH (08:13)
[2019-01-28] MEDS: Fish Oil 1,000 MG CAP PO SCH (08:13)
[2019-01-28] MEDS: Lidocaine Patch Removal 1 EACH TOP SCH ×2 (08:20→19:38)
[2019-01-28] MEDS ORDERED: Ketorolac Tromethamine 30 MG/ML VIAL IVP SCH (10:45)
--- NOTE | 2019-01-28 13:21 | PDOC.HOSPP ---
- Subjective Encounter Date: 01/28/19 Encounter Time: 09:00 Subjective: Pt seen for followup re: bacteremia. headache better but still present. - Objective Vital Signs & Weight: Vital Signs (12 hours) Temp Pulse Resp BP BP BP Pulse Ox 01/28/19 11:41 97.9 F 89 18 103/67 97 01/28/19 08:20 97.9 F 90 16 148/84 H 98 01/28/19 08:13 90 148/84 H 01/28/19 08:09 98 01/28/19 04:00 98.7 F 88 20 114/73 96 Weight Weight 163 lb 2.273 oz I&O: 01/27/19 01/28/19 01/29/19 06:59 06:59 06:59 Intake Total 1025 390 Balance 1025 390 Result Diagrams: 01/26/19 09:32 01/26/19 09:32 Additional Labs: Labs and MARs reviewed by [place] Hospitalist ROS - Review of Systems Gastrointestinal: denies: nausea, vomiting, abdominal pain, diarrhea, constipation, melena, hematochezia Genitourinary: denies: dysuria, frequency, incontinence, hematuria, retention Musculoskeletal: reports: other (headache) - Medication Medications: Active Medications Generic Name Dose Route Start Last Admin Trade Name Freq PRN Reason Stop Dose Admin Acetaminophen/Butalbital/Caffeine 1 tab 01/25/19 14:23 01/28/19 10:13 Fioricet PO 01/30/19 14:24 1 tab Q4H PRN Administration Headache Hydrocodone Bitart/Acetaminophen 1 tab 01/20/19 00:21 01/28/19 05:54 [place] 7.5/325 PO 1 tab Q6H PRN Administration Moderate Pain (4-6) Atorvastatin Calcium 40 mg 01/20/19 21:00 01/27/19 20:51 Lipitor PO 40 mg HS ALBIN Administration Clonidine 0.1 mg 01/22/19 19:46 01/25/19 23:42 Catapres PO 0.1 mg Q4H PRN Administration SBP >180 OR DBP >90 Clopidogrel Bisulfate 75 mg 01/21/19 09:00 01/28/19 08:12 Plavix PO 75 mg DAILY ALBIN Administration Cyclobenzaprine HCl 10 mg 01/26/19 15:00 01/28/19 08:12 Flexeril PO 10 mg TID ALBIN Administration Enoxaparin Sodium 40 mg 01/21/19 09:00 01/28/19 08:13 Lovenox SC 40 mg 0900 ALBIN Administration Fish Oil 1,000 mg 01/21/19 09:00 01/28/19 08:13 Fish Oil PO 1,000 mg DAILY ALBIN Administration Hydralazine HCl 50 mg 01/26/19 15:00 01/28/19 08:13 Apresoline PO 50 mg TID ALBIN Administration Hydroxyzine HCl 50 mg 01/20/19 12:40 01/28/19 09:14 Atarax PO 50 mg Q6H PRN Administration Pain Cefazolin Sodium/Dextrose 2 gm 50 mls @ 100 mls/hr 01/25/19 22:00 01/28/19 05 :54 / Device IVPB 50 mls Q8HR ALBIN Administration Ibuprofen 600 mg 01/26/19 15:00 01/28/19 08:12 Motrin PO 600 mg TID ALBIN Administration Lidocaine 2 patch 01/19/19 20:16 01/25/19 09:12 Lidoderm 5% Patch TD 2 patch Q24H PRN Administration Pain Lisinopril 20 mg 01/24/19 09:00 01/28/19 08:13 Zestril PO 20 mg BID ALBIN Administration Melatonin 3 mg 01/22/19 21:00 01/27/19 20:50 Melatonin PO 3 mg HS ALBIN Administration Menthol/Methyl Salicylate 1 gm 01/26/19 11:06 01/26/19 14:36 Muscle Rub Cream (Bengay) TOP 1 gm QIDPRN PRN Administration Pain Methocarbamol 500 mg 01/20/19 21:00 01/28/19 08:12 Robaxin PO 500 mg BID ALBIN Administration Metoprolol Succinate 50 mg 01/24/19 09:00 01/28/19 08:12 Toprol Xl PO 50 mg DAILY ALBIN Administration Miscellaneous Medication 1 each 01/20/19 09:00 01/28/19 08:20 Lidocaine Patch Removal TOP Not Given Q12HR [facility] Pantoprazole Sodium 40 mg 01/21/19 09:00 01/28/19 08:13 Protonix PO 40 mg DAILY ALBIN Administration Sertraline HCl 25 mg 01/21/19 09:00 01/28/19 08:15 Zoloft PO 25 mg DAILY ALBIN Administration Tramadol HCl 25 mg 01/25/19 09:16 01/28/19 02:39 Ultram PO 25 mg Q6H PRN Administration Fever/Mild Pain - Exam General Appearance: NAD Eye: anicteric sclera ENT: moist mucosa Neck: supple, symmetric Heart: RRR, no rubs Respiratory: CTAB Gastrointestinal: soft, non-tender Extremities: no cyanosis Musculoskeletal: no muscle wasting Psychiatric: normal affect, normal behavior Hosp A/P (1) Bacteremia Code(s): R78.81 - BACTEREMIA Status: Acute (2) Abscess in epidural space of lumbar spine Code(s): G06.1 - INTRASPINAL ABSCESS AND GRANULOMA Status: Acute (3) CAD (coronary artery disease) Code(s): I25.10 - ATHSCL HEART DISEASE OF [place] CORONARY ARTERY W/O ANG PCTRS Status: Acute (4) Headache Code(s): R51 - HEADACHE Status: Acute - Plan Continue Ancef. s/p PICC line. Add toradol to pain medications. Check AM labs.
[2019-01-28] MEDS: Melatonin 3 MG TAB PO SCH (19:35)
[2019-01-28] MEDS: Atorvastatin Calcium 40 MG TAB PO SCH (19:37)
[2019-01-28] MEDS: Ketorolac Tromethamine 30 MG/ML VIAL IVP PRN (19:39)
[2019-01-29] MEDS: hydrOXYzine 25 MG TAB PO PRN ×2 (00:07→13:47)
[2019-01-29] MEDS: Morphine 2 MG/ML SYRINGE SLOW IVP PRN (00:08)
[2019-01-29] MEDS: Fioricet 325/50/40 mg Tablet PO PRN ×3 (02:24→14:29)
[2019-01-29] MEDS: HYDROcodone/Acetaminophen 7.5/325 mg Tablet PO PRN (02:25)
[2019-01-29] MEDS: Ketorolac Tromethamine 30 MG/ML VIAL IVP PRN ×3 (06:24→18:21)
[2019-01-29] MEDS: CEFAZOLIN 2 GM in Premix Bag 1 BAG IVPB SCH ×3 (06:24→21:35)
[2019-01-29 06:40] LABS: #Basophils 0.1 thou/uL (0.0-0.2); #Eosinphils 0.1 thou/uL (0.0-0.7); #Monocytes 0.7 thou/uL (0.11-0.59); #Neutrophils 6.4 thou/uL (1.40-6.50); %Basophils 0.6 % (0.0-1.0); %Eosinophils 0.8 % (0.0-10.0); %Lymphocytes 21.9 % (21.0-51.0); %Monocytes 7.7 % (0.0-10.0); %Neutrophils 68.9 % (42.0-75.0); Hemoglobin 12.2 g/dL (14.0-18.0); Mean Corpuscular HGB CONC 32.9 g/dL (32.0-36.0); Mean Corpuscular Hemoglobin 27.5 pg (27.0-31.0); Mean Corpuscular Volume 83.6 fL (78.0-98.0); Mean Platelet Volume 6.3 fL (7.4-10.4); Platelet Count 834 thou/uL (130-400); RBC Distribution Width 13.2 % (11.5-14.5); Red Blood Cell (RBC) Count 4.45 mill/uL (4.70-6.10); White Blood Cell (WBC) Count 9.2 thou/uL (4.8-10.8)
[2019-01-29 07:03] LABS: ALT (SGPT) 16 U/L (8-55); AST (SGOT) 23 U/L (5-34); Albumin 3.1 g/dL (3.4-4.8); Alkaline Phosphatase 125 U/L (40-110); Bilirubin, Direct 0.2 mg/dL (0.1-0.3); Bilirubin, Total 0.3 mg/dL (0.2-1.2); Protein, Total 7.6 g/dL (5.8-8.1)
[2019-01-29 07:12] LABS: Anion Gap 11 mmol/L (10-20); BUN (Urea Nitrogen) 16 mg/dL (8.4-25.7); Calc. Creatinine Clearance 123 mL/min (70-130); Calcium 9.1 mg/dL (7.8-10.44); Carbon Dioxide 26 mmol/L (23-31); Chloride 100 mmol/L (98-107); Estimated GFR-MDRD Greater than 90; Glucose 108 mg/dL (80-115); Potassium 3.7 mmol/L (3.5-5.1); Sodium 133 mmol/L (136-145)
[2019-01-29] MEDS: Enoxaparin Sodium 40 MG/0.4 ML SYRINGE SC SCH (08:08)
[2019-01-29] MEDS: Ibuprofen 200 MG TAB PO SCH ×3 (08:09→20:05)
[2019-01-29] MEDS: Cyclobenzaprine 10 MG TAB PO SCH ×3 (08:09→20:04)
[2019-01-29] MEDS: Clopidogrel Bisulfate 75 MG TAB PO SCH (08:09)
[2019-01-29] MEDS: hydrALAZINE 25 MG TAB PO SCH ×3 (08:10→20:04)
[2019-01-29] MEDS: Lisinopril 20 MG TAB PO SCH ×2 (08:10→20:04)
[2019-01-29] MEDS: Fish Oil 1,000 MG CAP PO SCH (08:10)
[2019-01-29] MEDS: Methocarbamol 500 MG TAB PO SCH ×2 (08:11→20:06)
[2019-01-29] MEDS ORDERED: Bisacodyl 5 MG TAB PO PRN (11:57)
[2019-01-29] MEDS ORDERED: Bisacodyl 5 MG TAB PO SCH (12:00)
[2019-01-29] MEDS: Lidocaine Patch Removal 1 EACH TOP SCH ×2 (12:20→20:05)
--- NOTE | 2019-01-29 19:05 | PDOC.HOSPP ---
- Subjective Encounter Date: 01/29/19 Encounter Time: 09:40 Subjective: Pt seen for followup re; bacteremia. Slightly better, slept yesterday during the daytime. c/o constipation. - Objective Vital Signs & Weight: Vital Signs (12 hours) Temp Pulse Resp BP BP Pulse Ox 01/29/19 15:29 98.5 F 88 17 138/70 97 01/29/19 14:28 95 147/82 H 01/29/19 08:10 91 141/91 H 01/29/19 08:05 96 01/29/19 07:27 98.7 F 91 19 144/85 H 96 Weight Weight 163 lb 2.273 oz I&O: 01/28/19 01/29/19 01/30/19 06:59 06:59 06:59 Intake Total 390 1650 1600 Balance 390 1650 1600 Result Diagrams: 01/29/19 06:14 01/29/19 06:14 Additional Labs: Labs and MARs reviewed by ma Hospitalist ROS - Review of Systems Cardiovascular: denies: chest pain, palpitations, orthopnea, paroxysmal noc. dyspnea, edema, light headedness Gastrointestinal: reports: constipation. denies: nausea, vomiting, abdominal pain, diarrhea, melena, hematochezia Neurological: reports: other (headache) - Medication Medications: Active Medications Generic Name Dose Route Start Last Admin Trade Name Freq PRN Reason Stop Dose Admin Acetaminophen/Butalbital/Caffeine 1 tab 01/25/19 14:23 01/29/19 14:29 Fioricet PO 01/30/19 14:24 1 tab Q4H PRN Administration Headache Hydrocodone Bitart/Acetaminophen 1 tab 01/20/19 00:21 01/29/19 02:25 [place] 7.5/325 PO 1 tab Q6H PRN Administration Moderate Pain (4-6) Atorvastatin Calcium 40 mg 01/20/19 21:00 01/28/19 19:37 Lipitor PO 40 mg HS ALBIN Administration Clonidine 0.1 mg 01/22/19 19:46 01/25/19 23:42 Catapres PO 0.1 mg Q4H PRN Administration SBP >180 OR DBP >90 Clopidogrel Bisulfate 75 mg 01/21/19 09:00 01/29/19 08:09 Plavix PO 75 mg DAILY ALBIN Administration Cyclobenzaprine HCl 10 mg 01/26/19 15:00 01/29/19 14:29 Flexeril PO 10 mg TID ALBIN Administration Enoxaparin Sodium 40 mg 01/21/19 09:00 01/29/19 08:08 Lovenox SC 40 mg 0900 ALBIN Administration Fish Oil 1,000 mg 01/21/19 09:00 01/29/19 08:10 Fish Oil PO 1,000 mg DAILY ALBIN Administration Hydralazine HCl 50 mg 01/26/19 15:00 01/29/19 14:28 Apresoline PO 50 mg TID ALBIN Administration Hydroxyzine HCl 50 mg 01/20/19 12:40 01/29/19 13:47 Atarax PO 50 mg Q6H PRN Administration Pain Cefazolin Sodium/Dextrose 2 gm 50 mls @ 100 mls/hr 01/25/19 22:00 01/29/19 13 :47 / Device IVPB 50 mls Q8HR ALBIN Administration Ibuprofen 600 mg 01/26/19 15:00 01/29/19 14:28 Motrin PO 600 mg TID [facility] Administration Ketorolac Tromethamine 15 mg 01/28/19 10:41 01/29/19 18:21 Toradol IVP 02/02/19 10:42 15 mg Q6H PRN Administration Pain Lidocaine 2 patch 01/19/19 20:16 01/25/19 09:12 Lidoderm 5% Patch TD 2 patch Q24H PRN Administration Pain Lisinopril 20 mg 01/24/19 09:00 01/29/19 08:10 Zestril PO 20 mg BID [facility] Administration Melatonin 3 mg 01/22/19 21:00 01/28/19 19:35 Melatonin PO 3 mg HS [facility] Administration Menthol/Methyl Salicylate 1 gm 01/26/19 11:06 01/26/19 14:36 Muscle Rub Cream (Bengay) TOP 1 gm QIDPRN PRN Administration Pain Methocarbamol 500 mg 01/20/19 21:00 01/29/19 08:11 Robaxin PO 500 mg BID [facility] Administration Metoprolol Succinate 50 mg 01/24/19 09:00 01/29/19 08:10 Toprol Xl PO 50 mg DAILY [facility] Administration Miscellaneous Medication 1 each 01/20/19 09:00 01/29/19 12:20 Lidocaine Patch Removal TOP Not Given Q12HR [facility] Morphine Sulfate 2 mg 01/28/19 10:42 01/29/19 00:08 Morphine SLOW IVP 2 mg Q4H PRN Administration Pain Pantoprazole Sodium 40 mg 01/21/19 09:00 01/29/19 08:10 Protonix PO 40 mg DAILY ALBIN Administration Sertraline HCl 25 mg 01/21/19 09:00 01/29/19 08:10 Zoloft PO 25 mg DAILY ALBIN Administration Tramadol HCl 25 mg 01/25/19 09:16 01/28/19 02:39 Ultram PO 25 mg Q6H PRN Administration Fever/Mild Pain - Exam General Appearance: awake alert Eye: anicteric sclera ENT: normocephalic atraumatic, moist mucosa Neck: supple, symmetric Heart: RRR, no gallops, murmur present Respiratory: CTAB, no rales Gastrointestinal: soft, non-tender Skin: no rashes Neurological: no weakness Psychiatric: normal affect, normal behavior Hosp A/P (1) Bacteremia Code(s): R78.81 - BACTEREMIA Status: Acute (2) Abscess in epidural space of lumbar spine Code(s): G06.1 - INTRASPINAL ABSCESS AND GRANULOMA Status: Acute (3) CAD (coronary artery disease) Code(s): I25.10 - ATHSCL HEART DISEASE OF [place] CORONARY ARTERY W/O ANG PCTRS Status: Acute (4) Headache Code(s): R51 - HEADACHE Status: Acute - Plan plan discussed w/ family, continue antibiotics, out of bed/ambulate Duklcolax x1 and PRN. Will continue Ancef. s/p PICC line. Pt reports toradol helped with pain. Walking program.
[2019-01-29] MEDS: Melatonin 3 MG TAB PO SCH (20:05)
[2019-01-29] MEDS: Atorvastatin Calcium 40 MG TAB PO SCH (20:05)
[2019-01-30] MEDS: Ketorolac Tromethamine 30 MG/ML VIAL IVP PRN ×4 (00:06→18:09)
[2019-01-30] MEDS: CEFAZOLIN 2 GM in Premix Bag 1 BAG IVPB SCH ×3 (05:22→21:37)
[2019-01-30 05:53] LABS: #Basophils 0.1 thou/uL (0.0-0.2); #Eosinphils 0.1 thou/uL (0.0-0.7); #Lymphocytes 1.8 thou/uL (1.20-3.40); #Monocytes 0.7 thou/uL (0.11-0.59); #Neutrophils 5.3 thou/uL (1.40-6.50); %Eosinophils 0.8 % (0.0-10.0); %Lymphocytes 22.5 % (21.0-51.0); %Monocytes 9.1 % (0.0-10.0); %Neutrophils 66.7 % (42.0-75.0); Mean Corpuscular Hemoglobin 27.7 pg (27.0-31.0); Mean Corpuscular Volume 83.7 fL (78.0-98.0); Mean Platelet Volume 6.5 fL (7.4-10.4); Platelet Count 794 thou/uL (130-400); Red Blood Cell (RBC) Count 4.33 mill/uL (4.70-6.10)
[2019-01-30 06:29] LABS: Anion Gap 13 mmol/L (10-20); BUN (Urea Nitrogen) 16 mg/dL (8.4-25.7); Calc. Creatinine Clearance 127 mL/min (70-130); Calcium 9.1 mg/dL (7.8-10.44); Carbon Dioxide 23 mmol/L (23-31); Chloride 101 mmol/L (98-107); Estimated GFR-MDRD Greater than 90; Glucose 106 mg/dL (80-115); Potassium 3.6 mmol/L (3.5-5.1); Sodium 133 mmol/L (136-145)
[2019-01-30 06:30] LABS: ALT (SGPT) 13 U/L (8-55); AST (SGOT) 18 U/L (5-34); Albumin 3.1 g/dL (3.4-4.8); Alkaline Phosphatase 124 U/L (40-110); Bilirubin, Direct 0.2 mg/dL (0.1-0.3); Bilirubin, Total 0.3 mg/dL (0.2-1.2); Protein, Total 7.5 g/dL (5.8-8.1)
[2019-01-30] MEDS: Morphine 2 MG/ML SYRINGE SLOW IVP PRN (08:41)
[2019-01-30] MEDS: Enoxaparin Sodium 40 MG/0.4 ML SYRINGE SC SCH (08:46)
[2019-01-30] MEDS: Clopidogrel Bisulfate 75 MG TAB PO SCH (08:46)
[2019-01-30] MEDS: hydrALAZINE 25 MG TAB PO SCH ×2 (08:46→14:04)
[2019-01-30] MEDS: Fish Oil 1,000 MG CAP PO SCH (08:46)
[2019-01-30] MEDS: Cyclobenzaprine 10 MG TAB PO SCH ×3 (08:46→20:44)
[2019-01-30] MEDS: Ibuprofen 200 MG TAB PO SCH ×3 (08:47→20:44)
[2019-01-30] MEDS: Lisinopril 20 MG TAB PO SCH ×2 (08:47→20:45)
[2019-01-30] MEDS: traMADol HCl 50 MG TAB PO PRN ×2 (08:48→18:13)
[2019-01-30] MEDS: Methocarbamol 500 MG TAB PO SCH ×2 (08:48→20:46)
[2019-01-30] MEDS: Lidocaine Patch Removal 1 EACH TOP SCH ×2 (09:37→20:51)
[2019-01-30] MEDS: Fioricet 325/50/40 mg Tablet PO PRN (12:08)
--- NOTE | 2019-01-30 17:18 | PRG ---
DATE OF SERVICE: 01/30/2019 SUBJECTIVE: Mr. Mccartney still complains of the headaches. He is not very specific as to when he has headaches. He relates that his back pain has improved significantly. He is more functional now and able to sit by the bedside. He is able to walk to the bathroom, but is a little bit wobbly. He denies any shortness of breath. No abdominal pain. Voiding without difficulty. OBJECTIVE: VITAL SIGNS: The temperature has been normal throughout. BP 138/80, pulse 95, respirations 18, O2 saturation 98. GENERAL: Appears in no distress. HEENT: Ocular movements are conjugate. NECK: Supple. LUNGS: Symmetric air entry. HEART: S1 and S2. Regular rate. ABDOMEN: Soft, not distended. Mild tenderness in the lower back area. EXTREMITIES: Moves all extremities equally. LABORATORY DATA: White cell count is down to 8000, hemoglobin 12, platelets 794, 66% neutrophils, and creatinine 0.64. Culture with Staphylococcus aureus MSSA identified. Neurology consult was reviewed. He saw the patient on January 26 and felt that he probably has mild leptomeningeal infection given location of the abscess. ASSESSMENT AND DISCUSSION: History of osteoarthrosis, low back, and chronic low back problems with worsening pain with an intra and extra spinal infection with abscess formation due to methicillin-sensitive Staphylococcus aureus, probably a little bit of meningismus. At this time, he seems to be improving, but is still kind of wobbly and with unsteady gait and weak, and I think he will probably benefit from some rehabilitation. We will place a consult for rehab and then set up antibiotic therapy through there. Otherwise, he will have to go home on IV antimicrobials with cefazolin with Home Health since the does not have the capability of transporting him here once a week for PICC line management and re-evaluation. I do not think he is eligible for spinal tap and would not be helpful at this point in time. Job ID: [id number]
[2019-01-30] MEDS ORDERED: Heparin 1,000 UNITS/ML VIAL ONE (18:00)
--- NOTE | 2019-01-30 18:47 | PDOC.HOSPP ---
- Subjective Encounter Date: 01/30/19 Encounter Time: 10:20 Subjective: Pt seen for followup re: bacteremia. c/o ongoing headache. - Objective Vital Signs & Weight: Vital Signs (12 hours) Temp Pulse Resp BP BP Pulse Ox 01/30/19 14:04 138/80 01/30/19 08:47 160/93 H 01/30/19 08:46 95 160/93 H 01/30/19 07:50 98 01/30/19 07:26 98.4 F 95 18 163/83 H 98 Weight Admit Weight 163 lb 2.273 oz Weight 163 lb 2.273 oz I&O: 01/29/19 01/30/19 01/31/19 06:59 06:59 06:59 Intake Total 1650 1600 1600 Balance 1650 1600 1600 Result Diagrams: 01/30/19 05:26 01/30/19 05:26 Additional Labs: Labs and MARs reviewed by tx Hospitalist ROS - Review of Systems Constitutional: denies: fever, chills, sweats, weakness, malaise Cardiovascular: denies: chest pain, palpitations, orthopnea, paroxysmal noc. dyspnea, edema, light headedness Gastrointestinal: denies: nausea, vomiting, abdominal pain, diarrhea, constipation, melena, hematochezia Musculoskeletal: reports: neck pain (headache), other - Medication Medications: Active Medications Generic Name Dose Route Start Last Admin Trade Name Freq PRN Reason Stop Dose Admin Hydrocodone Bitart/Acetaminophen 1 tab 01/20/19 00:21 01/29/19 02:25 [place] 7.5/325 PO 1 tab Q6H PRN Administration Moderate Pain (4-6) Atorvastatin Calcium 40 mg 01/20/19 21:00 01/29/19 20:05 Lipitor PO 40 mg HS ALBIN Administration Clonidine 0.1 mg 01/22/19 19:46 01/25/19 23:42 Catapres PO 0.1 mg Q4H PRN Administration SBP >180 OR DBP >90 Clopidogrel Bisulfate 75 mg 01/21/19 09:00 01/30/19 08:46 Plavix PO 75 mg DAILY ALBIN Administration Cyclobenzaprine HCl 10 mg 01/26/19 15:00 01/30/19 14:04 Flexeril PO 10 mg TID ALBIN Administration Enoxaparin Sodium 40 mg 01/21/19 09:00 01/30/19 08:46 Lovenox SC 40 mg 0900 ALBIN Administration Fish Oil 1,000 mg 01/21/19 09:00 01/30/19 08:46 Fish Oil PO 1,000 mg DAILY ALBIN Administration Hydroxyzine HCl 50 mg 01/20/19 12:40 01/29/19 13:47 Atarax PO 50 mg Q6H PRN Administration Pain Cefazolin Sodium/Dextrose 2 gm 50 mls @ 100 mls/hr 01/25/19 22:00 01/30/19 14 :03 / Device IVPB 50 mls Q8HR ALBIN Administration Ibuprofen 600 mg 01/26/19 15:00 01/30/19 15:54 Motrin PO 600 mg TID ALBIN Administration Ketorolac Tromethamine 15 mg 01/28/19 10:41 01/30/19 18:09 Toradol IVP 02/02/19 10:42 15 mg Q6H PRN Administration Pain Lidocaine 2 patch 01/19/19 20:16 01/25/19 09:12 Lidoderm 5% Patch TD 2 patch Q24H PRN Administration Pain Lisinopril 20 mg 01/24/19 09:00 01/30/19 08:47 Zestril PO 20 mg BID ALBIN Administration Melatonin 3 mg 01/22/19 21:00 01/29/19 20:05 Melatonin PO 3 mg HS ALBIN Administration Menthol/Methyl Salicylate 1 gm 01/26/19 11:06 01/26/19 14:36 Muscle Rub Cream ([place]eng[place]) TOP 1 gm QIDPRN PRN Administration Pain Methocarbamol 500 mg 01/20/19 21:00 01/30/19 08:48 Robaxin PO 500 mg BID ALBIN Administration Metoprolol Succinate 50 mg 01/24/19 09:00 01/30/19 08:48 Toprol Xl PO 50 mg DAILY ALBIN Administration Miscellaneous Medication 1 each 01/20/19 09:00 01/30/19 09:37 Lidocaine Patch Removal TOP Not Given Q12HR [facility] Morphine Sulfate 2 mg 01/28/19 10:42 01/30/19 08:41 Morphine SLOW IVP 2 mg Q4H PRN Administration Pain Pantoprazole Sodium 40 mg 01/21/19 09:00 01/30/19 08:48 Protonix PO 40 mg DAILY ALBIN Administration Sertraline HCl 25 mg 01/21/19 09:00 01/30/19 08:48 Zoloft PO 25 mg DAILY [facility] Administration Tramadol HCl 25 mg 01/25/19 09:16 01/30/19 18:13 Ultram PO 25 mg Q6H PRN Administration Fever/Mild Pain Zolpidem Tartrate 5 mg 01/22/19 18:11 01/30/19 00:06 Ambien PO 5 mg HSPRN PRN Administration Insomnia - Exam General Appearance: NAD Eye: anicteric sclera ENT: normocephalic atraumatic, moist mucosa Neck: supple, no lymphadenopathy Heart: RRR, no rubs Respiratory: CTAB Gastrointestinal: soft, non-tender Neurological - other findings: Brudzinski's +ve Psychiatric: normal affect, normal behavior Hosp A/P (1) Bacteremia Code(s): R78.81 - BACTEREMIA Status: Acute (2) Abscess in epidural space of lumbar spine Code(s): G06.1 - INTRASPINAL ABSCESS AND GRANULOMA Status: Acute (3) CAD (coronary artery disease) Code(s): I25.10 - ATHSCL HEART DISEASE OF [place] CORONARY ARTERY W/O ANG PCTRS Status: Acute (4) Headache Code(s): R51 - HEADACHE Status: Acute - Plan plan discussed w/ family, continue antibiotics, out of bed/ambulate Pt had bowel movements today. Continue pain medications. Headache likely due to meningeal irritation. Continue Ancef. s/p PICC line. Walking program.
[2019-01-30] MEDS: Atorvastatin Calcium 40 MG TAB PO SCH (20:44)
[2019-01-30] MEDS: Melatonin 3 MG TAB PO SCH (20:46)
[2019-01-30] MEDS: HYDROcodone/Acetaminophen 7.5/325 mg Tablet PO PRN (21:35)
[2019-01-31] MEDS: Ketorolac Tromethamine 30 MG/ML VIAL IVP PRN ×2 (03:39→11:13)
[2019-01-31] MEDS: CEFAZOLIN 2 GM in Premix Bag 1 BAG IVPB SCH ×2 (05:47→13:00)
[2019-01-31] MEDS: traMADol HCl 50 MG TAB PO PRN (05:50)
[2019-01-31] MEDS: HYDROcodone/Acetaminophen 7.5/325 mg Tablet PO PRN (06:33)
[2019-01-31 06:38] LABS: #Basophils 0.1 thou/uL (0.0-0.2); #Eosinphils 0.1 thou/uL (0.0-0.7); #Lymphocytes 1.9 thou/uL (1.20-3.40); #Monocytes 0.7 thou/uL (0.11-0.59); #Neutrophils 5.2 thou/uL (1.40-6.50); %Basophils 1.5 % (0.0-1.0); %Eosinophils 0.9 % (0.0-10.0); %Lymphocytes 23.8 % (21.0-51.0); %Monocytes 8.4 % (0.0-10.0); %Neutrophils 65.5 % (42.0-75.0); Hemoglobin 11.9 g/dL (14.0-18.0); Mean Corpuscular Hemoglobin 27.6 pg (27.0-31.0); Mean Corpuscular Volume 83.5 fL (78.0-98.0); Mean Platelet Volume 6.3 fL (7.4-10.4); Platelet Count 737 thou/uL (130-400); RBC Distribution Width 12.9 % (11.5-14.5); White Blood Cell (WBC) Count 7.9 thou/uL (4.8-10.8)
[2019-01-31 06:58] LABS: Anion Gap 15 mmol/L (10-20); BUN (Urea Nitrogen) 15 mg/dL (8.4-25.7); Calc. Creatinine Clearance 119 mL/min (70-130); Calcium 9.1 mg/dL (7.8-10.44); Carbon Dioxide 22 mmol/L (23-31); Chloride 101 mmol/L (98-107); Estimated GFR-MDRD Greater than 90; Glucose 101 mg/dL (80-115); Potassium 3.9 mmol/L (3.5-5.1); Sodium 134 mmol/L (136-145)
[2019-01-31] MEDS: Cyclobenzaprine 10 MG TAB PO SCH ×2 (07:46→14:33)
[2019-01-31] MEDS: Methocarbamol 500 MG TAB PO SCH (07:46)
[2019-01-31] MEDS: Fish Oil 1,000 MG CAP PO SCH (07:47)
[2019-01-31] MEDS: Ibuprofen 200 MG TAB PO SCH ×2 (07:47→14:33)
[2019-01-31] MEDS: Lisinopril 20 MG TAB PO SCH (07:47)
[2019-01-31] MEDS: Clopidogrel Bisulfate 75 MG TAB PO SCH (07:47)
[2019-01-31] MEDS: Enoxaparin Sodium 40 MG/0.4 ML SYRINGE SC SCH (07:48)
[2019-01-31] MEDS: Lidocaine Patch Removal 1 EACH TOP SCH (07:48)
--- NOTE | 2019-01-31 13:33 | DIS ---
DATE OF ADMISSION: 01/19/2019 DATE OF DISCHARGE: 01/31/2019 PRIMARY CARE PROVIDER: Leandro Marie DO DISCHARGE DIAGNOSES: 1. Sepsis due to bacteremia. 2. Methicillin-sensitive Staphylococcus aureus bacteremia. 3. Intra and extraspinal infection with abscess formation. 4. Hyponatremia. CONDITION OF PATIENT ON THE DAY OF DISCHARGE: Stable. I assessed Mr. Mccartney on the day of discharge. He denies any chest pain or shortness of breath. Vital signs are stable. S1 and S2 are heard, regular. Lungs are clear to auscultation bilaterally. DISCHARGE MEDICATIONS: 1. Lipitor 40 mg at bedtime. 2. Biotin 10 mg daily. 3. Plavix 75 mg daily. 4. [place]-3 one capsule daily. 5. Zoloft 25 mg daily. 6. Cefazolin 2 g every 8 hours intravenously until March 11, 2019. 7. Lidocaine 2 patches daily, to be removed after 12 hours. 8. Lisinopril 20 mg 2 times a day. 9. Melatonin 3 mg at bedtime. 10. Robaxin 500 mg 2 times a day. 11. Toprol-XL 50 mg daily. 12. Protonix 40 mg daily. 13. Tylenol ER p.r.n. 14. Hydroxyzine 50 mg every 6 hours as needed. 15. Toradol 10 mg every 8 hours as needed, prescription for 20 tablets. 16. Flexeril 10 mg 3 times a day as needed, prescription for 20 doses. 17. Tramadol 25 mg every 6 hours as needed, prescription for 20 doses. CONSULTATIONS DURING THIS HOSPITALIZATION: Infectious Diseases, Dr. Hubbard. Neurosurgery, Dr. Bosch. Neurology, Dr. Zepeda. FOLLOWUP APPOINTMENTS: The patient is advised to follow up with primary care provider in 3 to 5 days' time. HOSPITAL COURSE: Mr. Mccartney is a pleasant 63-year-old gentleman, who was admitted to [facility] on January 19, 2019, for severe back pain and concern for spinal infection. Please refer to Dr. Stinson's history and physical note dated January 20, 2019, for further details. He was treated with intravenous antibiotics. He was seen by Neurosurgery Service and Infectious Diseases Service. MRI of the lumbar spondylosis with high-grade degenerative disk disease. He had severe left L4 to L5 foraminal stenosis. He had multilevel high-grade thecal sac stenosis, especially L3 to L4 and L4 to L5. He had left posterior extradural fluid collection within the spinal canal from L4 to L5 to L5 to S1 level, and large retrospinal fluid collection in the left posterior perivertebral space. He also had a testicular ultrasound, which showed complex left hydrocele with thickened tunica. On January 25, he underwent PICC line placement. Lumbar abscess culture, and one out of two blood cultures grew MSSA. He previously had CT-guided abscess drainage of the lumbar spine on January 22, 2019. He continued to complain of headaches. This was most likely secondary to meningeal irritation. He was seen by Neurology Service. He has been started on pain medications as needed. He continued to improve clinically. He is being discharged home with home health for IV infusion and therapy. On the day of discharge, he has sodium 134, potassium 3.9, creatinine 0.68. White count 7900, hemoglobin 11.9, and platelet count 737,000. Many thanks for allowing me to participate in your patient's care. Please feel free to contact me with any questions or concerns. He has been advised to follow up with his primary care provider. He will have weekly blood work done for CBC, CRP, and CMP. Many thanks for allowing me to participate in your patient's care. Please feel free to contact me with any questions or concerns. DISCHARGE DESTINATION: Home. TIME SPENT: Total amount of time spent coordinating this discharge: 32 minutes. Job ID: [id number]
[2019-01-31 14:32] VITALS: BP 148/81; TEMP 98.4
--- NOTE | 2019-02-01 13:33 | PQF ---
CLINICAL DOCUMENTATION IMPROVEMENT CLARIFICATION FORM: ICD-10 Updated PLEASE DO AN ADDENDUM TO THE PROGRESS NOTE WITH ANY DOCUMENTATION UPDATES OR ADDITIONS AND CARRY THROUGH TO DC SUMMARY. THANK YOU. DATE: 02/01/19 ATTN : DR. ARROYO Please exercise your independent, professional judgment in responding to the clarification form. Clinical indicators are provided on the bottom of this form for your review Please check appropriate box(s): [ ] Encephalopathy: Type: [ ] Acute [ ] Subacute [ ] Chronic Etiology: [ ] Hypertensive [ ] Metabolic [ ] Toxic [ ] Hepatic with Coma [ ] Hepatic w/o Coma [ ] Hypoxic [ ] Septic [ ] Drug induced: [ ] Unspecified [ ] in the setting of underlying dementia [ ] Other (please specify) [ x] Transient Alteration of Awareness [ ] Other diagnosis [ ] Unable to determine In addition, please specify: Present on Admission (POA): [ ] Yes [ x ] No [ ] Unable to determine For continuity of documentation, please document condition throughout progress notes and discharge summary. Thank You. CLINICAL INDICATORS - SIGNS / SYMPTOMS / LABS / RESULTS AND LOCATION IN EMR NURSING NOTE 01/22: "PT NOTED TO BE CONFUSED. PT ONLY ORIENTED TO SELF AND THAT HE IS IN [place], [place]. HE IS STATING SENTENCES THAT DO NOT MAKE SENSE, IS HALLUCINATING AND SEVERAL WORDS HAVE BEEN SLIGHTLY SLURRED. RISKS: HYPONATREMIA (DC SUMMARY 01/31) SEPSIS (DC SUMMARY 01/31) BACTEREMIA (PROGRESS NOTE 01/28) ABSCESS OF LUMBAR SPINE (PROGRESS NOTE 01/28) TREATMENT: IV FLUIDS (ORDERED 01/22) BED ALARM (PER NURSES NOTE 01/23) ZOLOFT (01/21-01/31) IV VANCOMYCIN (ER 01/19) IV ANCEF (01/25-01/31) [employer] Drafting Officer Crystal Reports Winform Viewer (This form is maintained as a part of the permanent medical record) 2014 [employer]. All Rights Reserved [email or web address] Office: [phone] [facility]
== END 2019-01-31 14:57 | disposition home or self-care (01) | DRG 871 ==
LOC: ERS 15:03 → T4-B 17:35
PROVIDERS: ADMIT Internal Medicine; ATTEND Internal Medicine
PROC: 009U3ZZ Drainage of Spinal Canal, Percutaneous Approach (ICD-10-PCS; 2019-01-22)
PROC: 02HV33Z Insertion of Infusion Device into Superior Vena Cava, Percutaneous Approach (ICD-10-PCS; principal; 2019-01-26)
PROC: B5181ZA Fluoroscopy of Superior Vena Cava using Low Osmolar Contrast, Guidance (ICD-10-PCS; 2019-01-26)
DX: A41.01 Sepsis due to Methicillin susceptible Staphylococcus aureus (principal); G06.1 Intraspinal abscess and granuloma; E87.1 Hypo-osmolality and hyponatremia; I25.10 Atherosclerotic heart disease of native coronary artery without angina pectoris; M51.36 Other intervertebral disc degeneration, lumbar region; M47.896 Other spondylosis, lumbar region; M48.061 Spinal stenosis, lumbar region without neurogenic claudication; Z86.73 Personal history of transient ischemic attack (TIA), and cerebral infarction without residual deficits; Z95.0 Presence of cardiac pacemaker; Z95.1 Presence of aortocoronary bypass graft; Z87.891 Personal history of nicotine dependence; N43.2 Other hydrocele
CPT/HCPCS: 36415; 36569; 70450; 70553; 71045; 72131; 72158; 74177; 76705; 76870; 77012; 80048; 80053; 80074; 80076; 80202; 82977; 83605; 83735; 84484; 85025; 85610; 85652; 85730; 86140; 87040; 87070; 87077; 87102; 87116; 87149; 87186; 87205; 87206; 93005; 93306; 93976; 96365; 96375; A9577; C1751; J0690; J0696; J1200; J1644; J1650; J1885; J2175; J2250; J2270; J2405; J2700; J2765; J3370; J3480; J3490; J7050; Q9966

== ENCOUNTER 2019-02-14 09:37 | Emergency (ER) | payer OTHER ==
[2019-02-14 10:56] LABS: #Basophils 0.1 thou/uL (0.0-0.2); #Monocytes 0.5 thou/uL (0.11-0.59); #Neutrophils 10.1 thou/uL (1.40-6.50); %Basophils 0.7 % (0.0-1.0); %Eosinophils 0.3 % (0.0-10.0); %Lymphocytes 8.7 % (21.0-51.0); %Neutrophils 86.2 % (42.0-75.0); Hemoglobin 12.3 g/dL (14.0-18.0); Mean Corpuscular HGB CONC 32.7 g/dL (32.0-36.0); Mean Corpuscular Hemoglobin 27.2 pg (27.0-31.0); Mean Corpuscular Volume 83.3 fL (78.0-98.0); Mean Platelet Volume 6.8 fL (7.4-10.4); Platelet Count 376 thou/uL (130-400); RBC Distribution Width 12.7 % (11.5-14.5); White Blood Cell (WBC) Count 11.8 thou/uL (4.8-10.8)
[2019-02-14 11:02] LABS: PTT 23.4 SEC (22.9-36.1); Prothrombin Time 13.3 SEC (12.0-14.7)
[2019-02-14 11:20] LABS: ALT (SGPT) Less than 7 U/L (8-55); AST (SGOT) 13 U/L (5-34); Albumin 3.6 g/dL (3.4-4.8); Alkaline Phosphatase 166 U/L (40-110); Anion Gap 15 mmol/L (10-20); BUN (Urea Nitrogen) 7 mg/dL (8.4-25.7); Bilirubin, Total 0.3 mg/dL (0.2-1.2); CRP (Inflammatory) 1.64 mg/dL (= or < 0.5); Calc. Creatinine Clearance 0 mL/min (70-130); Calcium 9.7 mg/dL (7.8-10.44); Carbon Dioxide 27 mmol/L (23-31); Chloride 100 mmol/L (98-107); Estimated GFR-MDRD Greater than 90; Globulin 3.8 g/dL (2.4-3.5); Glucose 113 mg/dL (80-115); Protein, Total 7.4 g/dL (5.8-8.1); Sodium 138 mmol/L (136-145)
== END 2019-02-14 12:28 | disposition home or self-care (01) ==
LOC: ERS 09:37
DX: R42 Dizziness and giddiness (principal); R53.1 Weakness; R51 Headache; R11.2 Nausea with vomiting, unspecified; R63.8 Other symptoms and signs concerning food and fluid intake; Z86.73 Personal history of transient ischemic attack (TIA), and cerebral infarction without residual deficits; Z87.891 Personal history of nicotine dependence; Z79.899 Other long term (current) drug therapy
CPT/HCPCS: 36415; 80053; 83605; 83880; 84484; 85025; 85610; 85730; 86140; 99284